=== PATIENT | male | born 1955 | race Asian ===

== ENCOUNTER 2020-05-26 06:30 | Outpatient (CLI) | payer OTHER ==
[2020-05-27 14:48] LABS: SARS-CoV-2 MS2 Positive; SARS-CoV-2 N Gene Negative; SARS-CoV-2 S Gene Negative; SARS-CoV-2 by NAA Not Detected (NotDetected); SARS-CoV-2 orf1ab Negative
== END 2020-05-26 06:31 | disposition home or self-care (01) ==
LOC: LABBT 06:30
PROVIDERS: ATTEND Internal Medicine Cardiovascular Disease
DX: I48.91 Unspecified atrial fibrillation (principal); Z20.828 Contact with and (suspected) exposure to other viral communicable diseases
CPT/HCPCS: 87635; U0003

== ENCOUNTER 2020-06-07 07:12 | Outpatient (CLI) | payer OTHER ==
[2020-06-08 09:25] LABS: SARS-CoV-2 MS2 Positive; SARS-CoV-2 N Gene Negative; SARS-CoV-2 S Gene Negative; SARS-CoV-2 by NAA Not Detected (NotDetected); SARS-CoV-2 orf1ab Negative
== END 2020-06-07 07:13 | disposition home or self-care (01) ==
LOC: LABBT 07:12
PROVIDERS: ATTEND Internal Medicine Cardiovascular Disease
DX: Z01.812 Encounter for preprocedural laboratory examination (principal); Z20.828 Contact with and (suspected) exposure to other viral communicable diseases
CPT/HCPCS: 87635; U0003

== ENCOUNTER 2020-06-10 06:57 | Day surgery (SDC) | payer OTHER ==
[2020-06-09 12:09] VITALS: BMI 31.4
[2020-06-10] MEDS ORDERED: PROPOFOL 20 ML ONE (08:25)
--- NOTE | 2020-06-11 01:56 | DIS ---
DATE OF ADMISSION: 06/10/2020 DATE OF DISCHARGE: 06/10/2020 Mr. Moody underwent cardioversion today, did require 360 joules of direct current energy before he converted to what looked like a junctional rhythm and then sinus rhythm. The patient's heart rate is 60 now. We will reduce metoprolol long-acting to 100 mg a day and see us in the office in 2 weeks. If he is still in sinus rhythm and feeling better that we noted, but if he goes back in fibrillation later, would could consider ablation. The ablation decision will be largely based on his symptoms. The patient did require 360 joules of direct current energy. Job ID: [id number]
--- NOTE | 2020-06-11 14:23 | CCLSPC ---
PROCEDURE: External cardioversion. INDICATION: Longstanding persistent atrial fibrillation, symptomatic. PROCEDURE IN DETAIL: The patient was brought to the post cath area in a fasting state. He was sedated by Anesthesia. He was given 200 joules direct current energy synchronized, did not convert to sinus rhythm. Then, he was 300 joules direct current. He did develop some idioventricular rhythm, but did not develop sinus rhythm. Then, at 360 joules, he converted briefly with an occasional P-wave to a sinus rhythm, but it looks like a junctional rhythm as well. It is difficult to tell the underlying rhythm currently. There were at least a few P-waves, looked like he did convert this very briefly. 12-lead EKG is pending. CONCLUSION: 1. Longstanding persistent atrial fibrillation. 2. Required 360 joules to have an occasional P-wave. 12-lead EKG is pending currently. Job ID: [id number]
--- NOTE | 2020-06-15 07:05 | EKG ---
Test Reason : POST CARDIOVERSION Blood Pressure : / mmHG Vent. Rate : 060 BPM Atrial Rate : 060 BPM P-R Int : 252 ms QRS Dur : 094 ms QT Int : 422 ms P-R-T Axes : 079 -25 -33 degrees QTc Int : 422 ms Sinus rhythm with 1st degree A-V block with Premature atrial complexes Possible Inferior infarct , age undetermined Abnormal ECG No previous ECGs available Confirmed by BAHMAN HERNANDEZ, MENDY ([id number] on 06/15/2020 7:05:25 AM Referred By: KIMBERLY Confirmed By:MENDY RUGGIERO MD
== END 2020-06-10 10:04 | disposition home or self-care (01) ==
LOC: CCL 06:57
PROVIDERS: ATTEND Internal Medicine Cardiovascular Disease
PROC: 5A2204Z Restoration of Cardiac Rhythm, Single (ICD-10-PCS; principal; 2020-06-10)
DX: I48.11 Longstanding persistent atrial fibrillation (principal); E11.9 Type 2 diabetes mellitus without complications; I10 Essential (primary) hypertension; E05.90 Thyrotoxicosis, unspecified without thyrotoxic crisis or storm; G47.33 Obstructive sleep apnea (adult) (pediatric); N40.0 Benign prostatic hyperplasia without lower urinary tract symptoms; E78.00 Pure hypercholesterolemia, unspecified; Z79.84 Long term (current) use of oral hypoglycemic drugs; Z79.899 Other long term (current) drug therapy
CPT/HCPCS: 92960; 93005; 93010; J2704

== ENCOUNTER 2020-07-29 11:45 | Outpatient (CLI) | payer MEDICARE ==
--- NOTE | 2020-07-29 12:34 | RAD ---
Chest 2 views HISTORY: Dyspnea. FINDINGS: No comparison. Cardiac silhouette is upper limits of normal in size. Pulmonary vasculature are unremarkable. Mediastinum is midline. Lungs slightly hyperinflated with widespread areas of mild interstitial scarr ing/thickening. Flattening of the hemidiaphragms on the lateral view. No lobar consolidation, pleural fluid, or pneum othorax are evident. Degenerative changes thoracic spine on the lateral view. IMPRESSION : Pulmonary hyperinflation. No acute abnormalities are demonstrated.
== END 2020-07-29 11:46 | disposition home or self-care (01) ==
LOC: BICRAD 11:45
PROVIDERS: ATTEND Internal Medicine Pulmonary Disease
DX: R06.00 Dyspnea, unspecified (principal); R91.8 Other nonspecific abnormal finding of lung field
CPT/HCPCS: 71046

== ENCOUNTER 2020-08-12 07:56 | Inpatient (IN) | payer MEDICARE ==
[2020-08-12] MEDS ORDERED: Azithromycin 500 MG VIAL ONE (08:10)
[2020-08-12] MEDS ORDERED: cefTRIAXone\\ROCEPHIN 1 GM VIAL ONE (08:10)
[2020-08-12 08:25] LABS: #Eosinphils 0.1 thou/uL (0.0-0.7); #Monocytes 0.2 thou/uL (0.11-0.59); #Neutrophils 8.6 thou/uL (1.40-6.50); %Basophils 0.3 % (0.0-1.0); %Eosinophils 0.6 % (0.0-10.0); %Lymphocytes 9.6 % (21.0-51.0); %Monocytes 2.3 % (0.0-10.0); %Neutrophils 87.2 % (42.0-75.0); Hemoglobin 11.8 g/dL (14.0-18.0); Mean Corpuscular HGB CONC 31.7 g/dL (32.0-36.0); Mean Corpuscular Hemoglobin 28.4 pg (27.0-31.0); Mean Corpuscular Volume 89.5 fL (78.0-98.0); Mean Platelet Volume 7.5 fL (7.4-10.4); Platelet Count 190 thou/uL (130-400); RBC Distribution Width 14.8 % (11.5-14.5); Red Blood Cell (RBC) Count 4.17 mill/uL (4.70-6.10); White Blood Cell (WBC) Count 9.9 thou/uL (4.8-10.8)
--- NOTE | 2020-08-12 08:40 | RAD ---
Exam: Chest one view HISTORY:COVID positive patient. Cough and shortness of breath. Comparison: 07/29/2020 FINDINGS: Cardiac silhouette:Cardiomegaly Aorta: Unremarkable Pulmonary vessels: Normal Costophrenic angles: Clear LUNGS: Worsening interstitial and alveolar opacities Pneumothorax: None Osseous abnormalities: None IMPRESSION: Worsening multi lobar COVID pneumonia.
[2020-08-12 08:42] LABS: ALT (SGPT) 43 U/L (8-55); AST (SGOT) 38 U/L (5-34); Albumin 3.6 g/dL (3.4-4.8); Alkaline Phosphatase 70 U/L (40-110); Anion Gap 18 mmol/L (10-20); BUN (Urea Nitrogen) 16 mg/dL (8.4-25.7); Bilirubin, Total 2.1 mg/dL (0.2-1.2); Calc. Creatinine Clearance 0 mL/min (70-130); Calcium 8.8 mg/dL (7.8-10.44); Carbon Dioxide 22 mmol/L (23-31); Chloride 97 mmol/L (98-107); Globulin 3.5 g/dL (2.4-3.5); Glucose 206 mg/dL (80-115); Potassium 3.2 mmol/L (3.5-5.1); Protein, Total 7.1 g/dL (5.8-8.1); Sodium 134 mmol/L (136-145)
--- NOTE | 2020-08-12 09:55 | CT ---
CTA Angio Chest W WO Con 08/12/2020 9:20 AM Indication: 64-year-old male with flulike symptoms and dyspnea; Covid positive testing 8 days ago Technique: Multiple CTA images were obtained of the thorax with IV contrast. 3-D rendering: MIP camryn nstructed images were created and reviewed. Comparison: CT the abdomen and pelvis without contrast from [facility] dated September 08, 2014. Findings: Pulmonary arteries: No central or segmental pulmonary embolus is evident. Heart and Aorta: There is mild cardiomegaly. There are mild vascular calcifications involving ram ry artery and thoracic aorta. Mediastinum:There is mild lymphadenopathy within the mediastinum and hilar regions. Lungs:There are patchy areas of scattered groundglass opacity with more confluent areas of peripheral consolidation within both lungs consistent with changes of an atypical multifocal pneumonia that is often seen with Covid 19 infections. Pleural space: Tiny bilateral pleural effusions. No pneumothorax Upper Abdomen: Stable bilateral adrenal adenoma. Osseous Structures: There is diffuse osteopenia. No suspicious osteolytic or osteoblastic lesion is identified. Soft tissues:No abnormality. Other findings:None. Impression: 1. No central or segmental pulmonary embolus identified. 2. Multifocal pneumonia is consistent with Covid pneumonia. 3. Mild cardiomegaly and mild bilateral pleural effusions. Component of volume overload or CHF cannot be entirely excluded. 4. Mild mediastinal hilar lymphadenopathy is likely reactive. 5. Stable bilateral adrenal adenoma.
[2020-08-12 11:04] LABS: Bacteria/HPF None Seen HPF (None Seen); Bilirubin Negative (Negative); Blood, Urine Trace (Negative); Clarity Clear (Clear); Glucose, Urine (Dipstick) 30 mg/dL (Negative); Ketone, Urine 10 mg/dL (Negative); Leukocyte Negative Leu/uL (Negative); Nitrite Negative (Negative); Protein, Urine (Dipstick) 300 mg/dL (Neg-Trace); RBC/HPF 0-3 HPF (0-3); Specific Gravity, Urine 1.019 (1.002-1.036); Squamous Epithelial 0-3 HPF (0-3); Urobilinogen Normal mg/dL (Less than 2); WBC/HPF 0-3 HPF (0-3); pH, Urine 6.5 (5.0-9.0)
[2020-08-12 11:41] LABS: Lactic Acid 2.2 mmol/L (0.5-2.2)
[2020-08-12 11:45] VITALS: BMI 30.5
[2020-08-12] MEDS ORDERED: Ondansetron PF 4 MG/2 ML Vial IVP PRN (11:45)
[2020-08-12] MEDS ORDERED: Acetaminophen 325 MG TAB PO PRN (11:45)
[2020-08-12] MEDS ORDERED: Ondansetron ODT 4 MG TAB SL PRN (11:45)
[2020-08-12] MEDS ORDERED: Loperamide HCl 2 MG CAP PO PRN ×2 (11:52)
[2020-08-12] MEDS ORDERED: Acetaminophen 650 MG Suppository PR PRN (11:52)
[2020-08-12] MEDS ORDERED: HumaLOG 300 UNITS/3 ML VIAL SC PRN (11:58)
[2020-08-12] MEDS ORDERED: Dextrose 50% Abboject 50 ML SYRINGE SLOW IVP PRN (11:58)
[2020-08-12] MEDS ORDERED: Dextrose 5% in Water 1,000 ML IV PRN (11:58)
[2020-08-12] MEDS ORDERED: Potassium Phosphate 15 MMOL in Sodium Chloride 0.9% 250 ML 250 ML IVPB SCH (12:00)
--- NOTE | 2020-08-12 12:05 | PDOC.HHP ---
Hospitalist HPI - History of Present Illness Shortness of breath History of Present Illness: Mr. Moody is a 64-year-old male with past medical history of hypertension, hyperlipidemia, type 2 diabetes mellitus, atrial fibrillation on Pradaxa, obstructive sleep apnea, COPD not on home O2, nephrolithiasis who presents emergency room for shortness of breath. Patient tested positive for Covid last week and his symptoms began approximately 8 days ago with fever, myalgias, and cough. Patient's respiratory status worsened and he had increasing dyspnea on exertion and eventually at rest. Presented hypoxic to 71% on room air. Patient denies chest pain, abdominal pain nausea vomiting diarrhea. Of note his bessemer bottom maker prescribed a course of steroids and a z-pack when his symptoms started, and he has finished a 5 day course. In emergency room initial vital signs showed patient 7% on room air, improved to 94% on 4 L nasal cannula. 176/104, 35, 98.9. Chest x-ray showed diffuse multifocal pneumonia. CT a was negative for pulmonary embolism but did show mild bilateral pleural effusions, mediastinal hilar lymphadenopathy, and changes consistent with COVID-19 pneumonia and an incidental adrenal adenoma which was stable from prior. Lactic acid was 2.5, troponin 0 0.024. D-dimer 0.59. EKG showed atrial fibrillation with a ventricular rate of 101. H/H 11.8/37.3. WBC 9.9. Platelets 190. BUN/CR 16/1.28, sodium 134, potassium 3.2. Glucose 206. T bili 2.1, AST/ALT 38/43. Patient received ceftriaxone, azithromycin and 1 L of normal saline. Hospitalist ROS - Review of Systems Constitutional: reports: fever, chills, weakness, malaise. denies: sweats Eyes: denies: pain, vision change, conjunctivae inflammation, eyelid inflammation, redness, other ENT: reports: throat pain. denies: ear pain, ear discharge, nose pain, nose discharge, nose congestion, mouth pain, mouth swelling, throat swelling, other Respiratory: reports: cough, shortness of breath, SOB with excertion. denies: dry, hemoptysis, pleuritic pain, sputum, wheezing, other Cardiovascular: denies: chest pain, palpitations, orthopnea, paroxysmal noc. dy spnea, edema, light headedness, other Gastrointestinal: denies: nausea, vomiting, abdominal pain, diarrhea, constipation, melena, hematochezia, other Genitourinary: denies: dysuria, frequency, incontinence, hematuria, retention, other Musculoskeletal: denies: neck pain, shoulder pain, arm pain, back pain, hand pain, leg pain, foot pain, other Skin: denies: rash, lesions, carlos, bruising, other Neurological: denies: weakness, numbness, incoordination, change in speech, con fusion, seizures, other - Medication Medications: No medications taken from ER records include Levothyroxine Atorvastatin Potassium Pradaxa We will need to confirm patient's home medication list No known drug allergies Hospitalist History - Past Medical History Other Medical History: Past medical history includes Hypertension Hyperlipidemia Type 2 diabetes mellitus Atrial fibrillationcardioversion in May 2020 Obstructive sleep apnea Kidney stones - Past Surgical History Other Surgical History: Past surgical history includes lithotripsy Cardioversion in May 2020 for atrial fibrillation - Family History Other Family History: No pertinent family history - Social History Smoking Status: Never smoker Alcohol: reports: None Drugs: reports: none Living Situation: With Family Activity level: independent ambulation - Exam General Appearance: NAD, awake alert General - other findings: Comfortable on 4 L nasal cannula ENT: normocephalic atraumatic, no oropharyngeal lesions, moist mucosa Neck: supple, symmetric, no JVD, no thyromegaly, no lymphadenopathy, no carotid bruit Heart: RRR, no murmur, no gallops, no rubs, normal peripheral pulses Respiratory: no wheezes, normal chest expansion, no tachypnea Respiratory - other findings: Rales throughout Gastrointestinal: soft, non-tender, non-distended, normal bowel sounds, no palpable masses, no hepatomegaly, no splenomegaly, no bruit Extremities: no cyanosis, no clubbing, no edema Skin: normal turgor, no lesions, no rashes Neurological: cranial nerve grossly intact, normal sensation to touch, no weakness, no focal deficits, no new deficit Musculoskeletal: normal tone, normal strength, no muscle wasting Psychiatric: normal affect, normal behavior, A&O x 3 Hospitalist Results - Labs Result Diagrams: 08/12/20 08:10 08/12/20 08:10 Lab results: WBC 9.9 thou/uL (4.8-10.8) 08/12/20 08:10 Hgb 11.8 g/dL (14.0-18.0) L 08/12/20 08:10 Hct 37.3 % (42.0-52.0) L 08/12/20 08:10 MCV 89.5 fL (78.0-98.0) 08/12/20 08:10 Plt Count 190 thou/uL (130-400) 08/12/20 08:10 Neutrophils % 87.2 % (42.0-75.0) H 08/12/20 08:10 Sodium 134 mmol/L (136-145) L 08/12/20 08:10 Potassium 3.2 mmol/L (3.5-5.1) L 08/12/20 08:10 Chloride 97 mmol/L (98-107) L 08/12/20 08:10 Carbon Dioxide 22 mmol/L (23-31) L 08/12/20 08:10 BUN 16 mg/dL (8.4-25.7) 08/12/20 08:10 Creatinine 1.28 mg/dL (0.7-1.3) 08/12/20 08:10 Glucose 206 mg/dL (80-115) H 08/12/20 08:10 Lactic Acid 2.2 mmol/L (0.5-2.2) 08/12/20 11:04 Calcium 8.8 mg/dL (7.8-10.44) 08/12/20 08:10 Total Bilirubin 2.1 mg/dL (0.2-1.2) H 08/12/20 08:10 AST 38 U/L (5-34) H 08/12/20 08:10 ALT 43 U/L (8-55) 08/12/20 08:10 Alkaline Phosphatase 70 U/L (40-110) 08/12/20 08:10 Troponin I 0.024 ng/mL (< 0.028) 08/12/20 08:10 Serum Total Protein 7.1 g/dL (5.8-8.1) 08/12/20 08:10 Albumin 3.6 g/dL (3.4-4.8) 08/12/20 08:10 Urine Ketones 10 mg/dL (Negative) A 08/12/20 10:30 Urine Blood Trace (Negative) A 08/12/20 10:30 Urine Nitrite Negative (Negative) 08/12/20 10:30 Ur Leukocyte Esterase Negative Paola/uL (Negative) 08/12/20 10:30 Urine RBC 0-3 HPF (0-3) 08/12/20 10:30 Urine WBC 0-3 HPF (0-3) 08/12/20 10:30 Ur Squamous Epith Cells 0-3 HPF (0-3) 08/12/20 10:30 Urine Bacteria None Seen HPF (None Seen) 08/12/20 10:30 Hospitalist H&P A/P - Plan Plan: COVID-19 pneumonia 64-year-old male with past medical history of hypertension, hyperlipidemia, di abetes, A. fib, CHARLEE presents for shortness of breath. Patient Covid positive approximately 1 week ago hypoxic to 70s on presentation. Chest x-ray shows multifocal pneumonia. CTA negative for PE but did show mild bilateral pleural effusions, lymphadenopathy and significant groundglass opacities consistent with COVID-19 pneumonia. WBC 9.9, lactic acid 2.5, initial troponin 0 0.024, D-dimer 0.59. Patient now requiring 4 L of nasal cannula to maintain oxygenation. Patient received ceftriaxone and azithromycin in the emergency room. Will continue IV antibiotics, start steroids, see if patient is candidate for remdesivir. Plan -Decadron, will see patient is candidate for remdesivir -Ceftriaxone, azithromycin -Supplemental oxygen -Tylenol, Robitussin -Vitamin C, zinc -We will obtain baseline inflammatory markers Acute hypoxic respiratory failure Patient with acute hypoxic respiratory failure secondary to moderate to severe COVID-19 pneumonia. Patient with new oxygen requirement now on 2 L of oxygen nasal cannula to maintain O2 sat. We will continue supplemental oxygen and closely monitor respiratory status. Treatment as above. Plan -Supplemental oxygen -Treatment as above -Closely monitor respiratory status COPD Hx of COPD not on home O2. Patient follows with Dr. Emerson. At start of symptom onset, patient was started on a course of steroids and abx, which he has completed for 5 days. Currently requiring 4L NC. Is on home symbicort standing and albuterol rescue. Will make standing and PRN inhalers available. Plan -PRN albuterol -Symbicort inhalers -Treatment as above Atrial fibrillation Patient with history of atrial fibrillation. Underwent cardioversion in May of 2020. Patient currently on Pradaxa which we will continue. EKG shows atrial fibrillation with heart rate of 101. Plan Continue to monitor heart rate Continue Pradaxa Confirm home medications and see if patient is on rate control Obstructive sleep apnea We will see if patient can use CPAP at night to help his respiratory status. Type 2 diabetes mellitus History of type 2 diabetes mellitus on Metformin. Will continue home medications. Plan -Continue home DM medications ISS ACHS glucose checks Carb consistent diet Hypertension History of hypertension we will continue home medications once confirmed Hyperlipidemia We will continue home statin once dosage confirmed Hypothyroidism We will continue home levothyroxine once dosage confirmed DVT prophylaxisPradaxa
[2020-08-12] MEDS ORDERED: Albuterol 200 PUFF (6.7GM INHALER) INH PRN (13:14)
[2020-08-12] MEDS: HumaLOG 300 UNITS/3 ML VIAL SC PRN (13:17)
[2020-08-12] MEDS ORDERED: Iopamidol-370 76% 500 ML 1 ML ONE (14:29)
[2020-08-12] MEDS: hydrALAZINE 25 MG TAB PO SCH ×2 (14:38→20:07)
[2020-08-12] MEDS: Albuterol 200 PUFF (6.7GM INHALER) INH SCH ×2 (15:37→18:39)
[2020-08-12] MEDS: Tamsulosin HCl 0.4 MG CAP PO SCH (18:39)
[2020-08-12] MEDS: Mometasone 200 MCG/Formoterol 5 MCG 120 PUFF INHALER INH SCH (18:39)
[2020-08-12] MEDS: Dutasteride 0.5 MG CAP PO SCH (18:39)
[2020-08-12] MEDS ORDERED: metFORMIN XR 500 MG TAB PO SCH (18:45)
[2020-08-12] MEDS: Amlodipine 5 MG TAB PO SCH (20:00)
[2020-08-12] MEDS: Montelukast Sodium 10 mg Tablet PO SCH (20:07)
[2020-08-12] MEDS: Potassium Chloride 20 MEQ TAB PO SCH ×2 (20:08→20:14)
[2020-08-12] MEDS ORDERED: Non-Formulary Item 1 EACH (Telmisartan [Telmisartan] 80 MG Tablet) PO SCH (21:00)
[2020-08-12] MEDS ORDERED: Losartan 25 MG TAB PO SCH (21:00)
[2020-08-12] MEDS: Atorvastatin Calcium 10 MG TAB PO SCH (21:27)
[2020-08-12] MEDS: Dabigatran 150 mg Capsule PO SCH (21:27)
[2020-08-13 06:41] LABS: #Eosinphils 0.1 thou/uL (0.0-0.7); #Monocytes 0.3 thou/uL (0.11-0.59); #Neutrophils 9.9 thou/uL (1.40-6.50); %Basophils 0.2 % (0.0-1.0); %Eosinophils 0.5 % (0.0-10.0); %Lymphocytes 8.9 % (21.0-51.0); %Neutrophils 87.4 % (42.0-75.0); Hemoglobin 11.5 g/dL (14.0-18.0); Mean Corpuscular HGB CONC 31.3 g/dL (32.0-36.0); Mean Corpuscular Hemoglobin 28.1 pg (27.0-31.0); Mean Corpuscular Volume 89.8 fL (78.0-98.0); Mean Platelet Volume 7.7 fL (7.4-10.4); Platelet Count 210 thou/uL (130-400); RBC Distribution Width 14.8 % (11.5-14.5); Red Blood Cell (RBC) Count 4.08 mill/uL (4.70-6.10); White Blood Cell (WBC) Count 11.3 thou/uL (4.8-10.8)
[2020-08-13] MEDS: Albuterol 200 PUFF (6.7GM INHALER) INH SCH ×4 (06:49→20:26)
[2020-08-13 07:03] LABS: Anion Gap 19 mmol/L (10-20); BUN (Urea Nitrogen) 22 mg/dL (8.4-25.7); Calc. Creatinine Clearance 72 mL/min (70-130); Carbon Dioxide 24 mmol/L (23-31); Chloride 100 mmol/L (98-107); Glucose 217 mg/dL (80-115); Potassium 3.8 mmol/L (3.5-5.1); Sodium 139 mmol/L (136-145)
[2020-08-13] MEDS: Dexamethasone 4 MG TAB PO SCH (07:39)
[2020-08-13] MEDS: Dabigatran 150 mg Capsule PO SCH ×2 (07:39→20:24)
[2020-08-13] MEDS: Cholecalciferol (Vitamin D3) 400 UNITS TAB PO SCH (07:39)
[2020-08-13] MEDS: Ascorbic Acid 500 mg Chewable Tablet PO SCH (07:39)
[2020-08-13] MEDS: Potassium Chloride 20 MEQ TAB PO SCH ×2 (07:39→20:26)
[2020-08-13] MEDS: Zinc Sulfate 220 MG CAP PO SCH (07:40)
[2020-08-13] MEDS: hydrALAZINE 25 MG TAB PO SCH ×3 (07:40→20:25)
[2020-08-13] MEDS: Levothyroxine 175 MCG TAB PO SCH (07:40)
[2020-08-13] MEDS: Mometasone 200 MCG/Formoterol 5 MCG 120 PUFF INHALER INH SCH ×2 (07:42→17:16)
[2020-08-13] MEDS: metFORMIN XR 500 MG TAB PO SCH ×2 (07:49→17:15)
[2020-08-13] MEDS: JANUVIA PO SCH (07:50)
[2020-08-13] MEDS ORDERED: Azithromycin 500 MG in Sodium Chloride 0.9% 250 ML 250 ML IVPB SCH (08:00)
[2020-08-13] MEDS ORDERED: metFORMIN 500 MG TAB PO SCH (08:00)
[2020-08-13] MEDS: Sodium Chloride 0.9% 500 ML IV SCH ×3 (08:29→20:26)
[2020-08-13] MEDS ORDERED: Cefepime 2 GM in Sodium Chloride 0.9% 100 ML IVPB SCH (09:00)
[2020-08-13] MEDS ORDERED: metFORMIN XR 500 MG TAB PO SCH ×2 (09:00→17:00)
[2020-08-13] MEDS ORDERED: JANUMET PO SCH ×2 (09:00)
[2020-08-13] MEDS ORDERED: cefTRIAXone\\ROCEPHIN 1 GM in Sodium Chloride 0.9% 100 ML IVPB SCH (09:00)
[2020-08-13] MEDS ORDERED: SITAGLIPTIN PHOSPHATE 25 MG PO SCH (09:00)
[2020-08-13] MEDS ORDERED: Furosemide 40 MG TAB PO SCH (09:00)
--- NOTE | 2020-08-13 09:22 | PDOC.HOSPP ---
- Subjective Encounter Date: 08/13/20 Encounter Time: 10:50 Subjective: Patient reports shortness of breath improved with high flow nasal cannula oxygen. Earlier this morning patient was quite short of breath and his oxygen was dropping on the simple nasal cannula that he was switched to to allow him to eat. Patient denies any chest pain. He does have significant dyspnea on exertion. Patient is worried about his who is now in the emergency room also with Covid and is being admitted to the hospital. - Objective Vital Signs & Weight: Vital Signs (12 hours) Temp Pulse Resp BP Pulse Ox 08/13/20 08:00 98.6 F 94 24 H 145/93 H 93 L 08/13/20 05:48 91 L 08/13/20 05:45 98.2 F 110 H 24 H 159/90 H 91 L 08/13/20 05:41 91 L 08/13/20 01:34 98.2 F 104 H 22 H 158/96 H 92 L Weight Weight 213 lb I&O: 08/12/20 08/13/20 08/14/20 06:59 06:59 06:59 Intake Total 990 Balance 990 Result Diagrams: 08/13/20 06:08 08/13/20 06:08 Additional Labs: Accuchecks 08/13/20 08/12/20 08/12/20 05:09 16:41 11:56 POC Glucose 196 H 223 H 208 H Hospitalist ROS - Review of Systems Constitutional: denies: fever, chills Respiratory: reports: cough, shortness of breath, SOB with excertion Cardiovascular: denies: chest pain, palpitations Gastrointestinal: denies: nausea, vomiting, abdominal pain - Medication Medications: Active Medications Generic Name Dose Route Start Last Admin Trade Name Freq PRN Reason Stop Dose Admin Albuterol Sulfate 2 puff 08/12/20 15:00 08/13/20 06:49 Albuterol 200 Puff (6.7gm Inhaler) INH 2 unit [id number] ELIZABETH Administration Albuterol Sulfate 2 puff 08/12/20 13:14 08/13/20 05:41 Albuterol 200 Puff (6.7gm Inhaler) INH 2 puff Q6H PRN Administration SOB &/or Wheezing Amlodipine Besylate 2.5 mg 08/12/20 21:00 08/12/20 20:00 Amlodipine 5 Mg Tab PO 2.5 mg HS ELIZABETH Administration Ascorbic Acid 1,000 mg 08/13/20 09:00 08/13/20 07:39 Ascorbic Acid 500 Mg Chewable Tablet PO 1,000 mg DAILY ELIZABETH Administration Atorvastatin Calcium 10 mg 08/12/20 21:00 08/12/20 21:27 Atorvastatin Calcium 10 Mg Tab PO 10 mg HS ELIZABETH Administration Cholecalciferol 400 units 08/13/20 09:00 08/13/20 07:39 Cholecalciferol (Vitamin D3) 400 Units Tab PO 400 units DAILY ELIZABETH Administration Dabigatran 150 mg 08/12/20 21:00 08/13/20 07:39 Dabigatran 150 Mg Capsule PO 150 mg BID ELIZABETH Administration Dexamethasone 6 mg 08/13/20 08:00 08/13/20 07:39 Dexamethasone 4 Mg Tab PO 6 mg QAM-WM ELIZABETH Administration Dutasteride 0.5 mg 08/12/20 18:00 08/12/20 18:39 Dutasteride 0.5 Mg Cap PO 0.5 mg 1800 ELIZABETH Administration Hydralazine HCl 25 mg 08/12/20 15:00 08/13/20 07:40 Hydralazine 25 Mg Tab PO 25 mg TID ELIZABETH Administration Azithromycin 500 mg/ Sodium 250 mls @ 250 mls/hr 08/13/20 08:00 08/13/20 07:45 Chloride IVPB 250 mls 0800 ELIZABETH Administration Sodium Chloride 500 mls @ 75 mls/hr 08/13/20 08:00 08/13/20 08:29 Normal Saline 0.9% IV 500 mls .[id number] ELIZABETH Administration Levothyroxine Sodium 175 mcg 08/13/20 06:00 08/13/20 07:40 Levothyroxine 175 Mcg Tab PO 175 mcg 0600 ELIZABETH Administration Loperamide HCl 4 mg 08/12/20 11:52 08/13/20 08:28 Loperamide Hcl 2 Mg Cap PO 08/13/20 11:53 4 mg ONE PRN Administration Diarrhea/Loose Stools Metformin HCl 1,000 mg 08/13/20 09:00 08/13/20 07:50 Metformin Xr 500 Mg Tab PO Not Given 0900 ELIZABETH Metformin HCl 1,000 mg 08/13/20 09:00 08/13/20 07:49 Metformin Xr 500 Mg Tab PO 1,000 mg 0900,1700 ELIZABETH Administration Metoprolol Succinate 100 mg 08/13/20 08:00 08/13/20 07:40 Metoprolol Succinate Xl 100 Mg Tab PO 100 mg BID-WM ELIZABETH Administration Mometasone Furoate/Formoterol Fumar 2 puff 08/12/20 18:30 08/13/20 07:42 Mometasone 200 Mcg/Formoterol 5 Mcg 120 Puff Inhaler INH Not Given BID-RT ELIZABETH Montelukast Sodium 10 mg 08/12/20 21:00 08/12/20 20:07 Montelukast Sodium 10 Mg Tablet PO 10 mg HS ELIZABETH Administration Patient's Home 0 each 08/13/20 09:00 08/13/20 07:50 Medication Januvia PO 1 each QAM ELIZABETH Administration Potassium Chloride 20 meq 08/12/20 21:00 08/13/20 07:39 Potassium Chloride 20 Meq Tab PO 20 meq BID ELIZABETH Administration Sodium Chloride 10 ml 08/12/20 11:52 08/13/20 07:45 Flush - Normal Saline 10 Ml Syringe IVF 10 ml PRN PRN Administration Saline Flush Tamsulosin HCl 0.4 mg 08/12/20 18:00 08/12/20 18:39 Tamsulosin Hcl 0.4 Mg Cap PO 0.4 mg 1800 ELIZABETH Administration Zinc Sulfate 220 mg 08/13/20 09:00 08/13/20 07:40 Zinc Sulfate 220 Mg Cap PO 220 mg DAILY ELIZABETH Administration - Exam General Appearance: NAD, awake alert ENT: moist mucosa Heart: RRR, no murmur, no gallops, no rubs Respiratory: no wheezes, no ronchi, normal chest expansion, no tachypnea, rales (Diffusely) Gastrointestinal: soft, non-tender, non-distended, normal bowel sounds Extremities: no edema Psychiatric: normal affect, normal behavior, A&O x 3 Hosp A/P - Plan COVID-19 pneumonia 64-year-old male with past medical history of hypertension, hyperlipidemia, diabetes, A. fib, CHARLEE presents for shortness of breath. Patient Covid positive approximately 1 week ago and now hypoxic to 70s on presentation. Chest x-ray shows multifocal pneumonia. CTA negative for PE but did show mild bilateral pleural effusions, lymphadenopathy and significant groundglass opacities consistent with COVID-19 pneumonia. WBC 9.9, lactic acid 2.5, initial troponin 0 0.024, D-dimer 0.59. Patient was requiring 4 L of nasal cannula in the ER to maintain oxygenation. Patient received ceftriaxone and azithromycin in the emergency room. Patient now requiring 15L mask, desated when switched to NC to allow to eat. This morning I had respiratory start him on high flow NC O2 and he is doing b iain. Plan -Decadron, start Remdesivir -d/c antibiotics as not shown to be helpful in Covid-19 pneumonia -Supplemental oxygen -Tylenol, Robitussin -Vitamin C, zinc -We will obtain baseline inflammatory markers Acute hypoxic respiratory failure Patient with acute hypoxic respiratory failure secondary to moderate to severe COVID-19 pneumonia. Patient with new oxygen requirement now on 2 L of oxygen nasal cannula to maintain O2 sat. We will continue supplemental oxygen and closely monitor respiratory status. Treatment as above. Plan -Supplemental oxygen -Treatment as above -Closely monitor respiratory status COPD Hx of COPD not on home O2. Patient follows with Dr. Emerson. At start of symptom onset, patient was started on a course of steroids and abx, which he has completed for 5 days. Now requiring high flow nasal cannula oxygen. Is on home symbicort standing and albuterol rescue. Will make standing and PRN inhalers available. Plan -PRN albuterol -Symbicort inhalers -Treatment as above Atrial fibrillation Patient with history of atrial fibrillation. Underwent cardioversion in May of 2020. Patient currently on Pradaxa which we will continue. EKG shows atrial fibrillation with heart rate of 101. Plan Continue to monitor heart rate Continue Pradaxa Confirm home medications and see if patient is on rate control Obstructive sleep apnea We will see if patient can use CPAP at night to help his respiratory status. Type 2 diabetes mellitus History of type 2 diabetes mellitus on Metformin. Will continue home medications. Plan -Continue home DM medications ISS ACHS glucose checks Carb consistent diet Hypertension History of hypertension we will continue home medications once confirmed Hyperlipidemia We will continue home statin once dosage confirmed Hypothyroidism We will continue home levothyroxine once dosage confirmed DVT prophylaxisPradaxa
[2020-08-13] MEDS ORDERED: REMDESIVIR (EUA) 200 MG in Sodium Chloride 0.9% 250 ML 210 ML IV SCH (11:30)
[2020-08-13] MEDS ORDERED: Furosemide 20 MG TAB PO SCH (12:00)
[2020-08-13 12:22] LABS: Legionella Urinary Ag Negative (Negative)
[2020-08-13] MEDS: Tamsulosin HCl 0.4 MG CAP PO SCH (17:15)
[2020-08-13] MEDS: Dutasteride 0.5 MG CAP PO SCH (17:15)
[2020-08-13] MEDS: ACARBOSE PO SCH (17:15)
[2020-08-13] MEDS: Losartan 25 MG TAB PO SCH (20:24)
[2020-08-13] MEDS: Amlodipine 5 MG TAB PO SCH (20:24)
[2020-08-13] MEDS: Atorvastatin Calcium 10 MG TAB PO SCH (20:25)
[2020-08-13] MEDS: Montelukast Sodium 10 mg Tablet PO SCH (20:25)
[2020-08-13] MEDS ORDERED: TELMISARTAN 80 MG PO SCH (21:00)
[2020-08-14] MEDS: Sodium Chloride 0.9% 500 ML IV SCH ×4 (03:59→16:27)
[2020-08-14] MEDS: Mometasone 200 MCG/Formoterol 5 MCG 120 PUFF INHALER INH SCH ×2 (07:40→17:20)
[2020-08-14 07:50] LABS: Anion Gap 19 mmol/L (10-20); BUN (Urea Nitrogen) 34 mg/dL (8.4-25.7); Calc. Creatinine Clearance 65 mL/min (70-130); Calcium 9.2 mg/dL (7.8-10.44); Carbon Dioxide 23 mmol/L (23-31); Chloride 102 mmol/L (98-107); Glucose 161 mg/dL (80-115); Potassium 3.8 mmol/L (3.5-5.1); Sodium 140 mmol/L (136-145)
[2020-08-14 08:05] LABS: #Eosinphils 0.1 thou/uL (0.0-0.7); #Lymphocytes 1.5 thou/uL (1.20-3.40); #Monocytes 0.6 thou/uL (0.11-0.59); #Neutrophils 12.3 thou/uL (1.40-6.50); %Basophils 0.2 % (0.0-1.0); %Eosinophils 0.7 % (0.0-10.0); %Lymphocytes 10.1 % (21.0-51.0); %Neutrophils 85.1 % (42.0-75.0); Hemoglobin 11.7 g/dL (14.0-18.0); Mean Corpuscular HGB CONC 30.5 g/dL (32.0-36.0); Mean Corpuscular Hemoglobin 27.3 pg (27.0-31.0); Mean Corpuscular Volume 89.3 fL (78.0-98.0); Mean Platelet Volume 7.5 fL (7.4-10.4); Platelet Count 250 thou/uL (130-400); RBC Distribution Width 15.1 % (11.5-14.5); White Blood Cell (WBC) Count 14.4 thou/uL (4.8-10.8)
[2020-08-14] MEDS: Cholecalciferol (Vitamin D3) 400 UNITS TAB PO SCH (08:06)
[2020-08-14] MEDS: Ascorbic Acid 500 mg Chewable Tablet PO SCH (08:06)
[2020-08-14] MEDS: metFORMIN XR 500 MG TAB PO SCH ×2 (08:06→16:26)
[2020-08-14] MEDS: Dexamethasone 4 MG TAB PO SCH (08:06)
[2020-08-14] MEDS: hydrALAZINE 25 MG TAB PO SCH ×3 (08:06→20:21)
[2020-08-14] MEDS: Potassium Chloride 20 MEQ TAB PO SCH ×2 (08:06→20:22)
[2020-08-14] MEDS: Zinc Sulfate 220 MG CAP PO SCH (08:07)
[2020-08-14] MEDS: Pantoprazole 40 MG VIAL IVP SCH (08:07)
[2020-08-14] MEDS: JANUVIA PO SCH (08:07)
[2020-08-14] MEDS: Dabigatran 150 mg Capsule PO SCH ×2 (08:07→20:22)
[2020-08-14] MEDS: Levothyroxine 175 MCG TAB PO SCH (08:07)
--- NOTE | 2020-08-14 08:07 | PDOC.HOSPP ---
- Subjective Encounter Date: 08/14/20 Encounter Time: 10:20 Subjective: Patient reports continued cough and shortness of breath especially with ambulation. He reports that his pulse rate was high all morning and he has a history of atrial fibrillation. Currently back down in the 90s while I was in the room. Patient reports that his is now admitted to the hospital on lower dose oxygen and remdesivir. - Objective Vital Signs & Weight: Vital Signs (12 hours) Temp Pulse Resp BP Pulse Ox 08/14/20 08:02 96.9 F L 92 38 H 149/96 H 96 08/14/20 05:13 98.3 F 95 31 H 126/96 H 95 08/14/20 03:14 36 H 96 08/14/20 00:12 98.3 F 97 33 H 148/87 H 95 08/13/20 20:25 101 H 08/13/20 20:24 101 H 08/13/20 20:15 98 F 90 32 H 138/76 Weight Weight 213 lb I&O: 08/13/20 08/14/20 08/15/20 06:59 06:59 06:59 Intake Total 990 660 Output Total 800 Balance 990 -140 Result Diagrams: 08/14/20 06:41 08/14/20 06:41 Hospitalist ROS - Review of Systems Constitutional: denies: fever, chills Respiratory: reports: cough, shortness of breath Cardiovascular: denies: chest pain, palpitations Gastrointestinal: denies: nausea, vomiting, abdominal pain - Medication Medications: Active Medications Generic Name Dose Route Start Last Admin Trade Name Freq PRN Reason Stop Dose Admin Albuterol Sulfate 2 puff 08/12/20 15:00 08/13/20 20:26 Albuterol 200 Puff (6.7gm Inhaler) INH 2 unit [id number] ELIZABETH Administration Albuterol Sulfate 2 puff 08/12/20 13:14 08/13/20 05:41 Albuterol 200 Puff (6.7gm Inhaler) INH 2 puff Q6H PRN Administration SOB &/or Wheezing Amlodipine Besylate 2.5 mg 08/12/20 21:00 08/13/20 20:24 Amlodipine 5 Mg Tab PO 2.5 mg HS ELIZABETH Administration Ascorbic Acid 1,000 mg 08/13/20 09:00 08/13/20 07:39 Ascorbic Acid 500 Mg Chewable Tablet PO 1,000 mg DAILY ELIZABETH Administration Atorvastatin Calcium 10 mg 08/12/20 21:00 08/13/20 20:25 Atorvastatin Calcium 10 Mg Tab PO 10 mg HS ELIZABETH Administration Cholecalciferol 400 units 08/13/20 09:00 08/13/20 07:39 Cholecalciferol (Vitamin D3) 400 Units Tab PO 400 units DAILY [facility]ETH Administration Dabigatran 150 mg 08/12/20 21:00 08/13/20 20:24 Dabigatran 150 Mg Capsule PO 150 mg BID ELIZ[facility]ETH Administration Dexamethasone 6 mg 08/13/20 08:00 08/13/20 07:39 Dexamethasone 4 Mg Tab PO 6 mg QAM-WM ELIZABETH Administration Dutasteride 0.5 mg 08/12/20 18:00 08/13/20 17:15 Dutasteride 0.5 Mg Cap PO 0.5 mg 1800 ELIZABETH Administration Hydralazine HCl 25 mg 08/12/20 15:00 08/13/20 20:25 Hydralazine 25 Mg Tab PO 25 mg TID ELIZABETH Administration Levothyroxine Sodium 175 mcg 08/13/20 06:00 08/13/20 07:40 Levothyroxine 175 Mcg Tab PO 175 mcg 0600 ELIZABETH Administration Losartan Potassium 100 mg 08/13/20 21:00 08/13/20 20:24 Losartan 25 Mg Tab PO 100 mg HS ELIZABETH Administration Metformin HCl 1,000 mg 08/13/20 09:00 08/13/20 17:15 Metformin Xr 500 Mg Tab PO 1,000 mg 0900,1700 ELIZ[facility]ETH Administration Metoprolol Succinate 100 mg 08/13/20 08:00 08/13/20 17:15 Metoprolol Succinate Xl 100 Mg Tab PO 100 mg BID-WM ELIZABETH Administration Mometasone Furoate/Formoterol Fumar 2 puff 08/12/20 18:30 08/14/20 07:40 Mometasone 200 Mcg/Formoterol 5 Mcg 120 Puff Inhaler INH Not Given BID-RT ELIZABETH Montelukast Sodium 10 mg 08/12/20 21:00 08/13/20 20:25 Montelukast Sodium 10 Mg Tablet PO 10 mg HS ELIZABETH Administration Patient's Home 0 each 08/13/20 17:00 08/13/20 17:15 Medication Acarbose PO 1 each 1700 ELIZABETH Administration Patient's Home 0 each 08/13/20 09:00 08/13/20 07:50 Medication Januvia PO 1 each QAM [facility]ETH Administration Potassium Chloride 20 meq 08/12/20 21:00 08/13/20 20:26 Potassium Chloride 20 Meq Tab PO 20 meq BID ELIZ[facility]ETH Administration Sodium Chloride 10 ml 08/12/20 11:52 08/13/20 07:45 Flush - Normal Saline 10 Ml Syringe IVF 10 ml PRN PRN Administration Saline Flush Tamsulosin HCl 0.4 mg 08/12/20 18:00 08/13/20 17:15 Tamsulosin Hcl 0.4 Mg Cap PO 0.4 mg 1800 ELIZABETH Administration Zinc Sulfate 220 mg 08/13/20 09:00 08/13/20 07:40 Zinc Sulfate 220 Mg Cap PO 220 mg DAILY EL[facility]ETH Administration - Exam General Appearance: NAD, awake alert ENT: moist mucosa Heart: RRR, no murmur, no gallops, no rubs Respiratory: CTAB, no wheezes, no rales, no ronchi Respiratory - other findings: Decent air movement throughout Gastrointestinal: soft, non-tender, non-distended, normal bowel sounds Extremities: no edema Psychiatric: normal affect, normal behavior, A&O x 3 Hosp A/P - Plan COVID-19 pneumonia 64-year-old male with past medical history of hypertension, hyperlipidemia, diabetes, A. fib, CHARLEE presents for shortness of breath. Patient Covid positive approximately 1 week ago and now hypoxic to 70s on presentation. Chest x-ray shows multifocal pneumonia. CTA negative for PE but did show mild bilateral pleural effusions, lymphadenopathy and significant groundglass opacities consistent with COVID-19 pneumonia. WBC 9.9, lactic acid 2.5, initial troponin 0 0.024, D-dimer 0.59. Patient was requiring 4 L of nasal cannula in the ER to maintain oxygenation. Patient received ceftriaxone and azithromycin in the emergency room. 08/13/2020 Patient now requiring 15L mask, desated when switched to NC to allow to eat. This morning I had respiratory start him on high flow NC O2 and he is doing better. Plan -Decadron, start Remdesivir -d/c antibiotics as not shown to be helpful in Covid-19 pneumonia -Supplemental oxygen -Tylenol, Robitussin -Vitamin C, zinc -We will obtain baseline inflammatory markers Acute hypoxic respiratory failure Patient with acute hypoxic respiratory failure secondary to moderate to severe COVID-19 pneumonia. Patient with new oxygen requirement now on 2 L of oxygen nasal cannula to maintain O2 sat. We will continue supplemental oxygen and closely monitor respiratory status. Treatment as above. Plan -Supplemental oxygen -Treatment as above -Closely monitor respiratory status COPD Hx of COPD not on home O2. Patient follows with Dr. Emerson. At start of symptom onset, patient was started on a course of steroids and abx, which he has compl eted for 5 days. Now requiring high flow nasal cannula oxygen. Is on home symbicort standing and albuterol rescue. Will make standing and PRN inhalers available. Plan -PRN albuterol -Symbicort inhalers -Treatment as above Acute renal failure Patient's creatinine continues to climb. May need to hold Remdesivir if goes up further. Plan -increase IV fluids to 100mL/her -monitor creatinine closely -renal consult if worsens further Atrial fibrillation Patient with history of atrial fibrillation. Underwent cardioversion in May of 2020. Patient currently on Pradaxa which we will continue. EKG shows atrial fibrillation with heart rate of 101. Plan Continue to monitor heart rate Continue Pradaxa Continuing home metoprolol 100 mg twice a day. Heart rate decently controlled in spite of his Covid infection. Continue current medications. Obstructive sleep apnea We will see if patient can use CPAP at night to help his respiratory status. Type 2 diabetes mellitus History of type 2 diabetes mellitus on Metformin. Will continue home medications. Plan -Continue home DM medications ISS ACHS glucose checks Carb consistent diet Hypertension History of hypertension we will continue home medications once confirmed Hyperlipidemia We will continue home statin once dosage confirmed Hypothyroidism We will continue home levothyroxine once dosage confirmed DVT prophylaxisPradaxa
[2020-08-14] MEDS: Albuterol 200 PUFF (6.7GM INHALER) INH SCH ×4 (08:08→17:21)
[2020-08-14] MEDS: REMDESIVIR (EUA) 100 MG in Sodium Chloride 0.9% 250 ML 230 ML IV SCH (13:36)
[2020-08-14] MEDS: ACARBOSE PO SCH (16:26)
[2020-08-14] MEDS: Tamsulosin HCl 0.4 MG CAP PO SCH (16:26)
[2020-08-14] MEDS: Dutasteride 0.5 MG CAP PO SCH (16:26)
[2020-08-14] MEDS: Amlodipine 5 MG TAB PO SCH (20:21)
[2020-08-14] MEDS: Losartan 25 MG TAB PO SCH (20:21)
[2020-08-14] MEDS: Montelukast Sodium 10 mg Tablet PO SCH (20:22)
[2020-08-14] MEDS: Atorvastatin Calcium 10 MG TAB PO SCH (20:22)
[2020-08-15] MEDS: Sodium Chloride 0.9% 500 ML IV SCH ×5 (03:18→23:22)
[2020-08-15] MEDS: Mometasone 200 MCG/Formoterol 5 MCG 120 PUFF INHALER INH SCH ×2 (04:59→16:08)
[2020-08-15] MEDS: Levothyroxine 175 MCG TAB PO SCH (05:00)
[2020-08-15] MEDS: Albuterol 200 PUFF (6.7GM INHALER) INH SCH ×4 (05:56→17:42)
[2020-08-15 07:41] LABS: Anion Gap 17 mmol/L (10-20); BUN (Urea Nitrogen) 43 mg/dL (8.4-25.7); Calc. Creatinine Clearance 66 mL/min (70-130); Calcium 9.2 mg/dL (7.8-10.44); Carbon Dioxide 20 mmol/L (23-31); Chloride 101 mmol/L (98-107); Glucose 216 mg/dL (80-115); Sodium 134 mmol/L (136-145)
[2020-08-15 07:54] LABS: Hemoglobin 11.8 g/dL (14.0-18.0); Mean Corpuscular HGB CONC 31.1 g/dL (32.0-36.0); Mean Corpuscular Hemoglobin 27.7 pg (27.0-31.0); RBC Distribution Width 15.2 % (11.5-14.5); Red Blood Cell (RBC) Count 4.27 mill/uL (4.70-6.10)
[2020-08-15] MEDS: Dabigatran 150 mg Capsule PO SCH ×2 (07:56→20:01)
[2020-08-15] MEDS: Potassium Chloride 20 MEQ TAB PO SCH ×2 (07:56→20:01)
[2020-08-15] MEDS: Ascorbic Acid 500 mg Chewable Tablet PO SCH (07:56)
[2020-08-15] MEDS: Zinc Sulfate 220 MG CAP PO SCH (07:56)
[2020-08-15] MEDS: Pantoprazole 40 MG VIAL IVP SCH (07:56)
[2020-08-15] MEDS: Cholecalciferol (Vitamin D3) 400 UNITS TAB PO SCH (07:56)
[2020-08-15] MEDS: metFORMIN XR 500 MG TAB PO SCH ×2 (07:57→16:07)
[2020-08-15] MEDS: Alogliptin 6.25 MG TAB PO SCH (07:57)
[2020-08-15] MEDS: hydrALAZINE 25 MG TAB PO SCH ×3 (07:57→20:00)
[2020-08-15] MEDS: Dexamethasone 4 MG TAB PO SCH (07:57)
[2020-08-15] MEDS: JANUVIA PO SCH (07:58)
[2020-08-15] MEDS ORDERED: sitaGLIPtin Phosphate 25 MG TAB PO SCH (09:00)
[2020-08-15 09:46] LABS: Anisocytosis SLIGHT = 6-15 cells (100X) (0-5/hpf); Band 3 % (5-11); Burr Cells SLIGHT = 2-5 cells (100X) (0-1/hpf); Hypochromia SLIGHT = 6-15 cells (100X) (0-5/hpf); Lymphocytes 8 % (21-51); MDiff Complete? YES; Mean Platelet Volume 7.7 fL (7.4-10.4); Monocytes 2 % (0-10); Neutrophil 87 % (42-75); Nucleated RBC 1 % (0); Platelet Count 210 thou/uL (130-400); Platelet Morphology Comment Appears Adequate; Polychromasia SLIGHT = 2-3 cells (100X) (0-2/hpf); White Blood Cell (WBC) Count 14.1 thou/uL (4.8-10.8)
--- NOTE | 2020-08-15 12:12 | PDOC.HOSPP ---
- Subjective Encounter Date: 08/15/20 Encounter Time: 12:11 Subjective: Follow-up Covid pneumonia with hypoxia. Patient stated he could not sleep last night with a high flow oxygen and preferred his CPAP. No major changes from yesterday. His serum creatinine level has plateaued at 1.5. He is tolerating high flow oxygen. - Objective Vital Signs & Weight: Vital Signs (12 hours) Temp Pulse Resp BP Pulse Ox 08/15/20 08:51 99.5 F 91 40 H 105/70 96 08/15/20 08:45 92 L 08/15/20 08:00 95 08/15/20 07:57 92 08/15/20 03:42 97.9 F 92 38 H 157/102 H 95 Weight Weight 213 lb I&O: 08/14/20 08/15/20 08/16/20 06:59 06:59 06:59 Intake Total 660 800 Output Total 800 850 Balance -140 -50 Result Diagrams: 08/15/20 06:33 08/15/20 06:33 Additional Labs: Accuchecks 08/15/20 08/15/20 08/14/20 11:31 05:26 16:43 POC Glucose 207 H 189 H 218 H 08/14/20 12:02 POC Glucose 205 H Hospitalist ROS - Medication Medications: Active Medications Generic Name Dose Route Start Last Admin Trade Name Freq PRN Reason Stop Dose Admin Albuterol Sulfate 2 puff 08/12/20 15:00 08/15/20 05:56 Albuterol 200 Puff (6.7gm Inhaler) INH 2 puff [id number] ELIZABETH Administration Albuterol Sulfate 2 puff 08/12/20 13:14 08/13/20 05:41 Albuterol 200 Puff (6.7gm Inhaler) INH 2 puff Q6H PRN Administration SOB &/or Wheezing Alogliptin Benzoate 6.25 mg 08/15/20 09:00 08/15/20 07:57 Alogliptin 6.25 Mg Tab PO 6.25 mg QAM [facility]ETH Administration Amlodipine Besylate 2.5 mg 08/12/20 21:00 08/14/20 20:21 Amlodipine 5 Mg Tab PO 2.5 mg HS ELIZ[facility]ETH Administration Ascorbic Acid 1,000 mg 08/13/20 09:00 08/15/20 07:56 Ascorbic Acid 500 Mg Chewable Tablet PO 1,000 mg DAILY [facility]ETH Administration Atorvastatin Calcium 10 mg 08/12/20 21:00 08/14/20 20:22 Atorvastatin Calcium 10 Mg Tab PO 10 mg HS EL[facility]ABETH Administration Cholecalciferol 400 units 08/13/20 09:00 08/15/20 07:56 Cholecalciferol (Vitamin D3) 400 Units Tab PO 400 units DAILY [facility]ETH Administration Dabigatran 150 mg 08/12/20 21:00 08/15/20 07:56 Dabigatran 150 Mg Capsule PO 150 mg BID EL[facility]ETH Administration Dexamethasone 6 mg 08/13/20 08:00 08/15/20 07:57 Dexamethasone 4 Mg Tab PO 6 mg QAM-WM ELIZABETH Administration Dutasteride 0.5 mg 08/12/20 18:00 08/14/20 16:26 Dutasteride 0.5 Mg Cap PO 0.5 mg 1800 ELIZABETH Administration Hydralazine HCl 25 mg 08/12/20 15:00 08/15/20 07:57 Hydralazine 25 Mg Tab PO 25 mg TID ELIZABETH Administration Remdesivir 100 mg/ Sodium 250 mls @ 250 mls/hr 08/14/20 13:00 08/14/20 13:36 Chloride IV 08/17/20 13:59 250 mls 1300 ELIZABETH Administration Sodium Chloride 500 mls @ 100 mls/hr 08/14/20 08:04 08/15/20 07:58 Normal Saline 0.9% IV 500 mls .Q5H EL[facility]ABETH Administration Levothyroxine Sodium 175 mcg 08/13/20 06:00 08/15/20 05:00 Levothyroxine 175 Mcg Tab PO 175 mcg 0600 ELIZABETH Administration Losartan Potassium 100 mg 08/13/20 21:00 08/14/20 20:21 Losartan 25 Mg Tab PO 100 mg HS ELIZABETH Administration Metformin HCl 1,000 mg 08/13/20 09:00 08/15/20 07:57 Metformin Xr 500 Mg Tab PO 1,000 mg 0900,1700 ELIZABETH Administration Metoprolol Succinate 100 mg 08/13/20 08:00 08/15/20 07:57 Metoprolol Succinate Xl 100 Mg Tab PO 100 mg BID-WM ELIZABETH Administration Mometasone Furoate/Formoterol Fumar 2 puff 08/12/20 18:30 08/15/20 04:59 Mometasone 200 Mcg/Formoterol 5 Mcg 120 Puff Inhaler INH 2 puff BID-RT ELIZABETH Administration Montelukast Sodium 10 mg 08/12/20 21:00 08/14/20 20:22 Montelukast Sodium 10 Mg Tablet PO 10 mg HS ELIZABETH Administration Pantoprazole Sodium 40 mg 08/14/20 09:00 08/15/20 07:56 Pantoprazole 40 Mg Vial IVP 40 mg DAILY ELIZ[facility]ETH Administration Patient's Home 0 each 08/13/20 17:00 08/14/20 16:26 Medication Acarbose PO 1 each 1700 ELIZABETH Administration Patient's Home 0 each 08/13/20 09:00 08/15/20 07:58 Medication Januvia PO 1 each QAM [facility]ETH Administration Potassium Chloride 20 meq 08/12/20 21:00 08/15/20 07:56 Potassium Chloride 20 Meq Tab PO 20 meq BID ELIZ[facility]ETH Administration Sodium Chloride 10 ml 08/12/20 11:52 08/13/20 07:45 Flush - Normal Saline 10 Ml Syringe IVF 10 ml PRN PRN Administration Saline Flush Tamsulosin HCl 0.4 mg 08/12/20 18:00 08/14/20 16:26 Tamsulosin Hcl 0.4 Mg Cap PO 0.4 mg 1800 EL[facility]ETH Administration Zinc Sulfate 220 mg 08/13/20 09:00 08/15/20 07:56 Zinc Sulfate 220 Mg Cap PO 220 mg DAILY [facility]ETH Administration - Exam General Appearance: NAD, awake alert ENT - other findings: High flow oxygen Neck: no JVD Heart: RRR Respiratory: no wheezes Gastrointestinal: soft, non-distended Neurological: no weakness, no focal deficits Musculoskeletal: normal strength Psychiatric: normal affect, normal behavior, A&O x 3 Hosp A/P (1) Acute respiratory failure with hypoxia Code(s): J96.01 - ACUTE RESPIRATORY FAILURE WITH HYPOXIA Status: Acute (2) Pneumonia due to COVID-19 virus Code(s): U07.1 - COVID-19; J12.82 - PNEUMONIA DUE TO CORONAVIRUS DISEASE 2019 Status: Acute (3) Chronic atrial fibrillation Code(s): I48.20 - CHRONIC ATRIAL FIBRILLATION, UNSPECIFIED Status: Acute (4) Essential hypertension Code(s): I10 - ESSENTIAL (PRIMARY) HYPERTENSION Status: Acute (5) Obstructive sleep apnea Code(s): G47.33 - OBSTRUCTIVE SLEEP APNEA (ADULT) (PEDIATRIC) Status: Acute (6) Acute renal failure Status: Acute - Plan Continue Decadron for COVID pneumonia. Renal function has plateaued. We will continue remdesivir Titrate oxygen. Patient is currently tolerating high flow oxygen with good oxygen saturation. Wean oxygen as tolerated Anticoagulation with Pradaxa. Suggesting BiPAP at night. Bronchodilators as needed Zinc, vitamin C and vitamin D supplementation Insulin sliding scale for glucose management. Patient is also on Metformin. Monitor renal function. Continue antihypertensives. Increase activity as tolerated. Atrial fibrillation is currently rate controlled on oral metoprolol XL. Reduce IV fluid rate.
[2020-08-15] MEDS: REMDESIVIR (EUA) 100 MG in Sodium Chloride 0.9% 250 ML 230 ML IV SCH (14:03)
[2020-08-15] MEDS: Dutasteride 0.5 MG CAP PO SCH (16:08)
[2020-08-15] MEDS: ACARBOSE PO SCH (16:08)
[2020-08-15] MEDS: Tamsulosin HCl 0.4 MG CAP PO SCH (16:08)
[2020-08-15] MEDS: Atorvastatin Calcium 10 MG TAB PO SCH (20:00)
[2020-08-15] MEDS: Montelukast Sodium 10 mg Tablet PO SCH (20:00)
[2020-08-15] MEDS: Amlodipine 5 MG TAB PO SCH (20:01)
[2020-08-15] MEDS: Losartan 25 MG TAB PO SCH (20:01)
[2020-08-16] MEDS: Levothyroxine 175 MCG TAB PO SCH (05:28)
[2020-08-16] MEDS: Mometasone 200 MCG/Formoterol 5 MCG 120 PUFF INHALER INH SCH ×2 (05:29→18:44)
[2020-08-16] MEDS: Albuterol 200 PUFF (6.7GM INHALER) INH SCH ×4 (05:29→18:44)
[2020-08-16 07:16] LABS: #Eosinphils 0.1 thou/uL (0.0-0.7); #Lymphocytes 2.1 thou/uL (1.20-3.40); #Monocytes 0.9 thou/uL (0.11-0.59); #Neutrophils 12.2 thou/uL (1.40-6.50); %Basophils 0.3 % (0.0-1.0); %Eosinophils 0.6 % (0.0-10.0); %Lymphocytes 13.4 % (21.0-51.0); %Monocytes 5.9 % (0.0-10.0); %Neutrophils 79.8 % (42.0-75.0); Hemoglobin 11.6 g/dL (14.0-18.0); Mean Corpuscular Hemoglobin 27.7 pg (27.0-31.0); Mean Corpuscular Volume 89.4 fL (78.0-98.0); Mean Platelet Volume 8.3 fL (7.4-10.4); Platelet Count 154 thou/uL (130-400); RBC Distribution Width 15.2 % (11.5-14.5); Red Blood Cell (RBC) Count 4.19 mill/uL (4.70-6.10); White Blood Cell (WBC) Count 15.3 thou/uL (4.8-10.8)
[2020-08-16 07:26] LABS: Anion Gap 18 mmol/L (10-20); BUN (Urea Nitrogen) 50 mg/dL (8.4-25.7); Calc. Creatinine Clearance 62 mL/min (70-130); Carbon Dioxide 21 mmol/L (23-31); Chloride 104 mmol/L (98-107); Glucose 201 mg/dL (80-115); Potassium 4.5 mmol/L (3.5-5.1); Sodium 138 mmol/L (136-145)
[2020-08-16] MEDS: Potassium Chloride 20 MEQ TAB PO SCH ×2 (08:26→20:38)
[2020-08-16] MEDS: Dexamethasone 4 MG TAB PO SCH (08:27)
[2020-08-16] MEDS: Cholecalciferol (Vitamin D3) 400 UNITS TAB PO SCH (08:27)
[2020-08-16] MEDS: Zinc Sulfate 220 MG CAP PO SCH (08:27)
[2020-08-16] MEDS: Ascorbic Acid 500 mg Chewable Tablet PO SCH (08:27)
[2020-08-16] MEDS: Alogliptin 6.25 MG TAB PO SCH (08:27)
[2020-08-16] MEDS: Sodium Chloride 0.9% 500 ML IV SCH ×2 (08:28→16:13)
[2020-08-16] MEDS: Pantoprazole 40 MG VIAL IVP SCH (08:28)
[2020-08-16] MEDS: metFORMIN XR 500 MG TAB PO SCH (08:28)
[2020-08-16] MEDS: Dabigatran 150 mg Capsule PO SCH ×2 (08:28→20:38)
[2020-08-16] MEDS: hydrALAZINE 25 MG TAB PO SCH ×3 (08:29→20:38)
--- NOTE | 2020-08-16 08:39 | PDOC.HOSPP ---
- Subjective Encounter Date: 08/16/20 Encounter Time: 10:30 Subjective: Patient is feeling a little bit better today. He feels like the congestion in his chest is loosening some. Less cough. Still very short of breath with movement. He now has his home CPAP to use at night and that helped him sleep well last night. - Objective Vital Signs & Weight: Vital Signs (12 hours) Temp Pulse Resp BP BP Pulse Ox 08/16/20 08:29 92 157/103 H 08/16/20 07:31 97.8 F 92 36 H 157/103 H 92 L 08/16/20 03:39 83 30 H 96 08/15/20 23:40 90 32 H 97 Weight Weight 213 lb I&O: 08/15/20 08/16/20 08/17/20 06:59 06:59 06:59 Intake Total 800 590 Output Total 850 950 Balance -50 -360 Result Diagrams: 08/16/20 06:42 08/16/20 06:42 Additional Labs: Accuchecks 08/15/20 08/15/20 16:34 11:31 POC Glucose 216 H 207 H Hospitalist ROS - Review of Systems Constitutional: denies: fever, chills Respiratory: reports: cough, shortness of breath, SOB with excertion Cardiovascular: denies: chest pain, palpitations Gastrointestinal: denies: nausea, vomiting, abdominal pain - Medication Medications: Active Medications Generic Name Dose Route Start Last Admin Trade Name Freq PRN Reason Stop Dose Admin Albuterol Sulfate 2 puff 08/12/20 15:00 08/16/20 05:29 Albuterol 200 Puff (6.7gm Inhaler) INH 2 puff [id number] ELIZABETH Administration Albuterol Sulfate 2 puff 08/12/20 13:14 08/13/20 05:41 Albuterol 200 Puff (6.7gm Inhaler) INH 2 puff Q6H PRN Administration SOB &/or Wheezing Alogliptin Benzoate 6.25 mg 08/15/20 09:00 08/16/20 08:27 Alogliptin 6.25 Mg Tab PO 6.25 mg QAM [facility]ETH Administration Amlodipine Besylate 2.5 mg 08/12/20 21:00 08/15/20 20:01 Amlodipine 5 Mg Tab PO 2.5 mg HS ELIZ[facility]ETH Administration Ascorbic Acid 1,000 mg 08/13/20 09:00 08/16/20 08:27 Ascorbic Acid 500 Mg Chewable Tablet PO 1,000 mg DAILY [facility]ETH Administration Atorvastatin Calcium 10 mg 08/12/20 21:00 08/15/20 20:00 Atorvastatin Calcium 10 Mg Tab PO 10 mg HS ELIZABETH Administration Cholecalciferol 400 units 08/13/20 09:00 08/16/20 08:27 Cholecalciferol (Vitamin D3) 400 Units Tab PO 400 units DAILY EL[facility]ETH Administration Dabigatran 150 mg 08/12/20 21:00 08/16/20 08:28 Dabigatran 150 Mg Capsule PO 150 mg BID ELIZ[facility]ETH Administration Dexamethasone 6 mg 08/13/20 08:00 08/16/20 08:27 Dexamethasone 4 Mg Tab PO 6 mg QAM- [facility]ETH Administration Dutasteride 0.5 mg 08/12/20 18:00 08/15/20 16:08 Dutasteride 0.5 Mg Cap PO 0.5 mg 1800 EL[facility]ETH Administration Hydralazine HCl 25 mg 08/12/20 15:00 08/16/20 08:29 Hydralazine 25 Mg Tab PO 25 mg TID ELIZ[facility]ETH Administration Remdesivir 100 mg/ Sodium 250 mls @ 250 mls/hr 08/14/20 13:00 08/15/20 14:03 Chloride IV 08/17/20 13:59 250 mls 1300 EL[facility]ETH Administration Sodium Chloride 500 mls @ 50 mls/hr 08/15/20 12:22 08/16/20 08:28 Normal Saline 0.9% IV Not Given .Q10H [facility]ETH Levothyroxine Sodium 175 mcg 08/13/20 06:00 08/16/20 05:28 Levothyroxine 175 Mcg Tab PO 175 mcg 0600 EL[facility]ETH Administration Losartan Potassium 100 mg 08/13/20 21:00 08/15/20 20:01 Losartan 25 Mg Tab PO 100 mg HS ELIZABETH Administration Metformin HCl 1,000 mg 08/13/20 09:00 08/16/20 08:28 Metformin Xr 500 Mg Tab PO 1,000 mg 0900,1700 EL[facility]ETH Administration Metoprolol Succinate 100 mg 08/13/20 08:00 08/16/20 08:27 Metoprolol Succinate Xl 100 Mg Tab PO 100 mg BID-WM ELIZABETH Administration Mometasone Furoate/Formoterol Fumar 2 puff 08/12/20 18:30 08/16/20 05:29 Mometasone 200 Mcg/Formoterol 5 Mcg 120 Puff Inhaler INH 2 puff BID-RT ELIZABETH Administration Montelukast Sodium 10 mg 08/12/20 21:00 08/15/20 20:00 Montelukast Sodium 10 Mg Tablet PO 10 mg HS ELIZABETH Administration Pantoprazole Sodium 40 mg 08/14/20 09:00 08/16/20 08:28 Pantoprazole 40 Mg Vial IVP 40 mg DAILY EL[facility]ETH Administration Patient's Home 0 each 08/13/20 17:00 08/15/20 16:08 Medication Acarbose PO 1 each 1700 EL[facility]ETH Administration Patient's Home 0 each 08/13/20 09:00 08/15/20 07:58 Medication Januvia PO 1 each QAM [facility]ETH Administration Potassium Chloride 20 meq 08/12/20 21:00 08/16/20 08:26 Potassium Chloride 20 Meq Tab PO 20 meq BID ELIZ[facility]ETH Administration Sodium Chloride 10 ml 08/12/20 11:52 08/13/20 07:45 Flush - Normal Saline 10 Ml Syringe IVF 10 ml PRN PRN Administration Saline Flush Tamsulosin HCl 0.4 mg 08/12/20 18:00 08/15/20 16:08 Tamsulosin Hcl 0.4 Mg Cap PO 0.4 mg 1800 ELIZ[facility]ETH Administration Zinc Sulfate 220 mg 08/13/20 09:00 08/16/20 08:27 Zinc Sulfate 220 Mg Cap PO 220 mg DAILY EL[facility]ETH Administration - Exam General Appearance: NAD, awake alert ENT: moist mucosa ENT - other findings: High flow oxygen in place Heart: RRR, no murmur, no gallops, no rubs Respiratory: no wheezes, no ronchi, no tachypnea Respiratory - other findings: Few Rales in bases. Good air movement throughout. Gastrointestinal: soft, non-tender, non-distended, normal bowel sounds Extremities: no edema Musculoskeletal: normal tone, normal strength Psychiatric: normal affect, normal behavior, A&O x 3 Hosp A/P - Plan COVID-19 pneumonia 64-year-old male with past medical history of hypertension, hyperlipidemia, diabetes, A. fib, CHARLEE presents for shortness of breath. Patient Covid positive approximately 1 week ago and now hypoxic to 70s on presentation. Chest x-ray shows multifocal pneumonia. CTA negative for PE but did show mild bilateral pleural effusions, lymphadenopathy and significant groundglass opacities c onsistent with COVID-19 pneumonia. WBC 9.9, lactic acid 2.5, initial troponin 0 0.024, D-dimer 0.59. Patient was requiring 4 L of nasal cannula in the ER to maintain oxygenation. Patient received ceftriaxone and azithromycin in the emergency room. 08/13/2020 Patient now requiring 15L mask, desated when switched to NC to allow to eat. This morning I had respiratory start him on high flow NC O2 and he is doing better. 08/16/2020 Patient on his home CPAP overnight. Otherwise weaned down on high flow O2 to 39% FiO2 and 50L/min. Hopefully starting to improve. Plan -Decadron, Remdesivir day / -d/c'd antibiotics as not shown to be helpful in Covid-19 pneumonia -Supplemental oxygen -Tylenol, Robitussin -Vitamin C, zinc -Follow inflammatory markers Acute hypoxic respiratory failure Patient with acute hypoxic respiratory failure secondary to moderate to severe COVID-19 pneumonia. We will continue supplemental oxygen and closely monitor respiratory status. Treatment as above. Plan -Supplemental oxygen -Treatment as above -Closely monitor respiratory status COPD Hx of COPD not on home O2. Patient follows with Dr. Emerson. At start of symptom onset, patient was started on a course of steroids and abx, which he has completed for 5 days. Now requiring high flow nasal cannula oxygen. Is on home symbicort standing and albuterol rescue. Will make standing and PRN inhalers available. Plan -PRN albuterol -Symbicort inhalers -Treatment as above Acute renal failure Patient's creatinine continues to climb very minimally, up to 1.6 today. Plan -increased IV fluids to 100mL/her -monitor creatinine closely -renal consult if worsens further Atrial fibrillation Patient with history of atrial fibrillation. Underwent cardioversion in May of 2020. Patient currently on Pradaxa which we will continue. EKG shows atrial fibrillation with heart rate of 101. Plan Continue to monitor heart rate Continue Pradaxa Continuing home metoprolol 100 mg twice a day. Heart rate decently controlled in spite of his Covid infection. Continue current medications. Obstructive sleep apnea Using his home CPAP at night. Type 2 diabetes mellitus History of type 2 diabetes mellitus on Metformin. Plan -Hold home Metformin due to worsening renal function. ISS ACHS glucose checks Carb consistent diet Hypertension History of hypertension we will continue home medications Hyperlipidemia We will continue home statin Hypothyroidism We will continue home levothyroxine DVT prophylaxisPradaxa I did call patient's daughter and updated her on his progress. She would like to be updated every 2 or 3 days by a provider.
[2020-08-16] MEDS: JANUVIA PO SCH (08:42)
[2020-08-16] MEDS: HumaLOG 300 UNITS/3 ML VIAL SC PRN (13:00)
[2020-08-16] MEDS: REMDESIVIR (EUA) 100 MG in Sodium Chloride 0.9% 250 ML 230 ML IV SCH (14:09)
[2020-08-16] MEDS: Tamsulosin HCl 0.4 MG CAP PO SCH (17:02)
[2020-08-16] MEDS: Dutasteride 0.5 MG CAP PO SCH (17:02)
[2020-08-16] MEDS: ACARBOSE PO SCH (17:03)
[2020-08-16] MEDS: Amlodipine 5 MG TAB PO SCH (20:37)
[2020-08-16] MEDS: Atorvastatin Calcium 10 MG TAB PO SCH (20:37)
[2020-08-16] MEDS: Losartan 25 MG TAB PO SCH (20:37)
[2020-08-16] MEDS: Montelukast Sodium 10 mg Tablet PO SCH (20:38)
[2020-08-17] MEDS: Levothyroxine 175 MCG TAB PO SCH (05:16)
[2020-08-17] MEDS: Albuterol 200 PUFF (6.7GM INHALER) INH SCH ×4 (05:17→18:20)
[2020-08-17] MEDS: Mometasone 200 MCG/Formoterol 5 MCG 120 PUFF INHALER INH SCH ×2 (05:17→18:20)
[2020-08-17 06:13] LABS: #Eosinphils 0.1 thou/uL (0.0-0.7); #Lymphocytes 1.5 thou/uL (1.20-3.40); #Neutrophils 12.9 thou/uL (1.40-6.50); %Eosinophils 0.8 % (0.0-10.0); %Lymphocytes 9.7 % (21.0-51.0); %Monocytes 6.4 % (0.0-10.0); %Neutrophils 83.1 % (42.0-75.0); Hemoglobin 11.6 g/dL (14.0-18.0); Mean Corpuscular HGB CONC 31.7 g/dL (32.0-36.0); Mean Corpuscular Hemoglobin 28.1 pg (27.0-31.0); Mean Corpuscular Volume 88.7 fL (78.0-98.0); Mean Platelet Volume 8.4 fL (7.4-10.4); Platelet Count 167 thou/uL (130-400); RBC Distribution Width 15.6 % (11.5-14.5); Red Blood Cell (RBC) Count 4.14 mill/uL (4.70-6.10); White Blood Cell (WBC) Count 15.5 thou/uL (4.8-10.8)
[2020-08-17 06:39] LABS: Anion Gap 15 mmol/L (10-20); BUN (Urea Nitrogen) 44 mg/dL (8.4-25.7); Calc. Creatinine Clearance 67 mL/min (70-130); Calcium 8.5 mg/dL (7.8-10.44); Carbon Dioxide 22 mmol/L (23-31); Chloride 106 mmol/L (98-107); Glucose 192 mg/dL (80-115); Potassium 4.2 mmol/L (3.5-5.1); Sodium 139 mmol/L (136-145)
[2020-08-17] MEDS: Dexamethasone 4 MG TAB PO SCH (08:13)
[2020-08-17] MEDS: Pantoprazole 40 MG VIAL IVP SCH (08:13)
--- NOTE | 2020-08-17 08:13 | PDOC.HOSPP ---
- Subjective Encounter Date: 08/17/20 Encounter Time: 11:00 Subjective: Patient reports mild improvement in his shortness of breath and dyspnea on exertion. No other events overnight. Blood pressure has been running high. Patient states that his amlodipine if increased will cause significant lower extremity swelling. - Objective Vital Signs & Weight: Vital Signs (12 hours) Temp Pulse Resp BP Pulse Ox 08/17/20 07:41 97.6 F 80 38 H 156/110 H 99 08/17/20 03:39 79 36 H 96 08/16/20 23:39 82 34 H 96 Weight Weight 213 lb I&O: 08/16/20 08/17/20 08/18/20 06:59 06:59 06:59 Intake Total 590 2720 Output Total 950 1600 Balance -360 1120 Result Diagrams: 08/17/20 05:51 08/17/20 05:51 Additional Labs: Accuchecks 08/16/20 08/16/20 16:12 11:33 POC Glucose 209 H 205 H Hospitalist ROS - Review of Systems Constitutional: denies: fever, chills Respiratory: reports: cough, shortness of breath, SOB with excertion Cardiovascular: denies: chest pain, palpitations Gastrointestinal: denies: nausea, vomiting, abdominal pain - Medication Medications: Active Medications Generic Name Dose Route Start Last Admin Trade Name Freq PRN Reason Stop Dose Admin Albuterol Sulfate 2 puff 08/12/20 15:00 08/17/20 05:17 Albuterol 200 Puff (6.7gm Inhaler) INH 2 puff [id number] [facility] Administration Albuterol Sulfate 2 puff 08/12/20 13:14 08/13/20 05:41 Albuterol 200 Puff (6.7gm Inhaler) INH 2 puff Q6H PRN Administration SOB &/or Wheezing Alogliptin Benzoate 6.25 mg 08/15/20 09:00 08/16/20 08:27 Alogliptin 6.25 Mg Tab PO 6.25 mg QAM [facility] Administration Ascorbic Acid 1,000 mg 08/13/20 09:00 08/16/20 08:27 Ascorbic Acid 500 Mg Chewable Tablet PO 1,000 mg DAILY [facility] Administration Atorvastatin Calcium 10 mg 08/12/20 21:00 08/16/20 20:37 Atorvastatin Calcium 10 Mg Tab PO 10 mg HS [facility] Administration Cholecalciferol 400 units 08/13/20 09:00 08/16/20 08:27 Cholecalciferol (Vitamin D3) 400 Units Tab PO 400 units DAILY [facility] Administration Dabigatran 150 mg 08/12/20 21:00 08/16/20 20:38 Dabigatran 150 Mg Capsule PO 150 mg BID [facility] Administration Dexamethasone 6 mg 08/13/20 08:00 08/16/20 08:27 Dexamethasone 4 Mg Tab PO 6 mg QAM-WM [facility] Administration Dutasteride 0.5 mg 08/12/20 18:00 08/16/20 17:02 Dutasteride 0.5 Mg Cap PO 0.5 mg 1800 [facility] Administration Hydralazine HCl 25 mg 08/12/20 15:00 08/16/20 20:38 Hydralazine 25 Mg Tab PO 25 mg TID [facility] Administration Remdesivir 100 mg/ Sodium 250 mls @ 250 mls/hr 08/14/20 13:00 08/16/20 14:09 Chloride IV 08/17/20 13:59 250 mls 1300 [facility] Administration Sodium Chloride 500 mls @ 50 mls/hr 08/15/20 12:22 08/16/20 16:13 Normal Saline 0.9% IV 500 mls .Q10H [facility] Administration Levothyroxine Sodium 175 mcg 08/13/20 06:00 08/17/20 05:16 Levothyroxine 175 Mcg Tab PO 175 mcg 0600 [facility] Administration Loperamide HCl 2 mg 08/12/20 11:52 08/16/20 13:00 Loperamide Hcl 2 Mg Cap PO 2 mg PRN PRN Administration Diarrhea/Loose Stools Losartan Potassium 100 mg 08/13/20 21:00 08/16/20 20:37 Losartan 25 Mg Tab PO 100 mg HS [facility] Administration Metformin HCl 1,000 mg 08/13/20 09:00 08/16/20 08:28 Metformin Xr 500 Mg Tab PO 1,000 mg 0900,1700 [facility] Administration Metoprolol Succinate 100 mg 08/13/20 08:00 08/16/20 16:12 Metoprolol Succinate Xl 100 Mg Tab PO 100 mg BID-WM [facility] Administration Mometasone Furoate/Formoterol Fumar 2 puff 08/12/20 18:30 08/17/20 05:17 Mometasone 200 Mcg/Formoterol 5 Mcg 120 Puff Inhaler INH 2 puff BID-RT [facility] Administration Montelukast Sodium 10 mg 08/12/20 21:00 08/16/20 20:38 Montelukast Sodium 10 Mg Tablet PO 10 mg HS [facility] Administration Pantoprazole Sodium 40 mg 08/14/20 09:00 08/16/20 08:28 Pantoprazole 40 Mg Vial IVP 40 mg DAILY [facility] Administration Patient's Home 0 each 08/13/20 17:00 08/16/20 17:03 Medication Acarbose PO 1 each 1700 [facility] Administration Patient's Home 0 each 08/13/20 09:00 08/16/20 08:42 Medication Januvia PO 1 each QAM [facility] Administration Potassium Chloride 20 meq 08/12/20 21:00 08/16/20 20:38 Potassium Chloride 20 Meq Tab PO 20 meq BID [facility] Administration Sodium Chloride 10 ml 08/12/20 11:52 08/13/20 07:45 Flush - Normal Saline 10 Ml Syringe IVF 10 ml PRN PRN Administration Saline Flush Tamsulosin HCl 0.4 mg 08/12/20 18:00 08/16/20 17:02 Tamsulosin Hcl 0.4 Mg Cap PO 0.4 mg 1800 [facility] Administration Zinc Sulfate 220 mg 08/13/20 09:00 08/16/20 08:27 Zinc Sulfate 220 Mg Cap PO 220 mg DAILY [facility] Administration Hospitalist Exam Vitals: Vital Signs (12 hours) Temp Pulse Resp BP Pulse Ox 08/17/20 07:41 97.6 F 80 38 H 156/110 H 99 08/17/20 03:39 79 36 H 96 08/16/20 23:39 82 34 H 96 Weight Weight 213 lb General Appearance: NAD, awake alert ENT: moist mucosa Heart: RRR, no murmur, no gallops, no rubs Respiratory: no wheezes, no ronchi, no tachypnea Respiratory - other findings: Mild bibasilar Rales Gastrointestinal: soft, non-tender, non-distended, normal bowel sounds Extremities - other findings: Trace ankle edema bilaterally Psychiatric: normal affect, normal behavior, A&O x 3 Hosp A/P - Plan COVID-19 pneumonia 64-year-old male with past medical history of hypertension, hyperlipidemia, diabetes, A. fib, CHARLEE presents for shortness of breath. Patient Covid positive approximately 1 week ago and now hypoxic to 70s on presentation. Chest x-ray shows multifocal pneumonia. CTA negative for PE but did show mild bilateral pleural effusions, lymphadenopathy and significant groundglass opacities consistent with COVID-19 pneumonia. WBC 9.9, lactic acid 2.5, initial troponin 0 0.024, D-dimer 0.59. Patient was requiring 4 L of nasal cannula in the ER to maintain oxygenation. Patient received ceftriaxone and azithromycin in the emergency room. 08/13/2020 Patient now requiring 15L mask, desated when switched to NC to allow t o eat. This morning I had respiratory start him on high flow [place] O2 and he is doing better. 08/16/2020 Patient on his home CPAP overnight. Otherwise weaned down on high flow O2 to 39% FiO2 and 50L/min. Hopefully starting to improve. 08/17/2020 Now down to 40% FiO2 at 40L/min Plan -Decadron, Remdesivir day 11/24 -d/c'd antibiotics as not shown to be helpful in Covid-19 pneumonia -Supplemental oxygen -Tylenol, Robitussin -Vitamin C, zinc -Follow inflammatory markers-CRP markedly improving, though D-dimer is further elevated. Patient already on Pradaxa. Acute hypoxic respiratory failure Patient with acute hypoxic respiratory failure secondary to moderate to severe COVID-19 pneumonia. We will continue supplemental oxygen and closely monitor respiratory status. Treatment as above. Plan -Supplemental oxygen -Treatment as above -Closely monitor respiratory status COPD Hx of COPD not on home O2. Patient follows with Dr. Emerson. At start of symptom onset, patient was started on a course of steroids and abx, which he has completed for 5 days. Now requiring high flow nasal cannula oxygen. Is on home symbicort standing and albuterol rescue. Will make standing and PRN inhalers available. Plan -PRN albuterol -Symbicort inhalers -Treatment as above Acute renal failure Patient's creatinine improving some today. Plan -continue IV fluids at 100mL/her -monitor creatinine closely -renal consult if worsens further Atrial fibrillation Patient with history of atrial fibrillation. Underwent cardioversion in May of 2020. Patient currently on Pradaxa which we will continue. EKG sh ows atrial fibrillation with heart rate of 101. Plan Continue to monitor heart rate Continue Pradaxa Continuing home metoprolol 100 mg twice a day. Heart rate well controlled. Obstructive sleep apnea Using his home CPAP at night. Type 2 diabetes mellitus History of type 2 diabetes mellitus on Metformin. Plan -Hold home Metformin due to worsening renal function. ISS ACHS glucose checks Carb consistent diet Hypertension History of hypertension we will continue home medications Running high consistently, will increase hydralazine dose Hyperlipidemia We will continue home statin Hypothyroidism We will continue home levothyroxine DVT prophylaxisPradaxa I did call patient's daughter again today and updated her on his progress. She would like to be updated every 2 or 3 days by a provider.
[2020-08-17] MEDS: Dabigatran 150 mg Capsule PO SCH ×2 (08:14→19:57)
[2020-08-17] MEDS: Zinc Sulfate 220 MG CAP PO SCH (08:14)
[2020-08-17] MEDS: Cholecalciferol (Vitamin D3) 400 UNITS TAB PO SCH (08:14)
[2020-08-17] MEDS: Ascorbic Acid 500 mg Chewable Tablet PO SCH (08:14)
[2020-08-17] MEDS: hydrALAZINE 25 MG TAB PO SCH ×4 (08:14→19:58)
[2020-08-17] MEDS: Potassium Chloride 20 MEQ TAB PO SCH ×2 (08:14→19:57)
[2020-08-17] MEDS: Alogliptin 6.25 MG TAB PO SCH (08:14)
[2020-08-17] MEDS: Sodium Chloride 0.9% 500 ML IV SCH ×3 (08:15→21:52)
[2020-08-17] MEDS: JANUVIA PO SCH ×3 (09:03→16:39)
[2020-08-17] MEDS: REMDESIVIR (EUA) 100 MG in Sodium Chloride 0.9% 250 ML 230 ML IV SCH (13:39)
[2020-08-17] MEDS ORDERED: Alogliptin 6.25 MG TAB PO SCH (17:00)
[2020-08-17] MEDS: Tamsulosin HCl 0.4 MG CAP PO SCH (17:15)
[2020-08-17] MEDS: Dutasteride 0.5 MG CAP PO SCH (17:15)
[2020-08-17] MEDS: Atorvastatin Calcium 10 MG TAB PO SCH (19:57)
[2020-08-17] MEDS: Losartan 25 MG TAB PO SCH (19:58)
[2020-08-17] MEDS: Montelukast Sodium 10 mg Tablet PO SCH (19:58)
[2020-08-17] MEDS: Amlodipine 5 MG TAB PO SCH (19:59)
[2020-08-17] MEDS ORDERED: Amlodipine 5 MG TAB PO SCH (21:00)
[2020-08-18] MEDS: Levothyroxine 175 MCG TAB PO SCH (05:46)
[2020-08-18] MEDS: Sodium Chloride 0.9% 500 ML IV SCH ×2 (05:46→16:20)
[2020-08-18] MEDS: Mometasone 200 MCG/Formoterol 5 MCG 120 PUFF INHALER INH SCH ×2 (07:20→17:46)
[2020-08-18] MEDS: Albuterol 200 PUFF (6.7GM INHALER) INH SCH ×4 (07:20→18:37)
--- NOTE | 2020-08-18 07:41 | PDOC.HOSPP ---
- Subjective Encounter Date: 08/18/20 Encounter Time: 09:00 Subjective: Patient reports feeling much better. He has been taken off high flow oxygen and is saturating well on 4 L nasal cannula currently. I did discuss with the patient the need to increase his hydralazine and that he needs to take it 3 times a day and he is agreeable. - Objective Vital Signs & Weight: Vital Signs (12 hours) Temp Pulse Resp BP Pulse Ox 08/18/20 07:37 93 L 08/18/20 05:46 98.0 F 20 159/91 H 98 08/18/20 05:00 83 08/18/20 00:00 98.3 F 73 20 147/88 H 99 08/17/20 20:00 100 08/17/20 19:59 71 08/17/20 19:58 71 08/17/20 19:51 98.2 F 71 20 162/96 H 100 Weight Weight 213 lb I&O: 08/17/20 08/18/20 08/19/20 06:59 06:59 06:59 Intake Total 2720 1950 Output Total 1600 950 Balance 1120 1000 Result Diagrams: 08/17/20 05:51 08/17/20 05:51 Hospitalist ROS - Review of Systems Constitutional: denies: fever, chills Respiratory: reports: shortness of breath, SOB with excertion. denies: cough Cardiovascular: denies: chest pain, palpitations Gastrointestinal: denies: nausea, vomiting, abdominal pain - Medication Medications: Active Medications Generic Name Dose Route Start Last Admin Trade Name Freq PRN Reason Stop Dose Admin Albuterol Sulfate 2 puff 08/12/20 15:00 08/18/20 07:20 Albuterol 200 Puff (6.7gm Inhaler) INH 2 puff [id number] [facility] Administration Albuterol Sulfate 2 puff 08/12/20 13:14 08/13/20 05:41 Albuterol 200 Puff (6.7gm Inhaler) INH 2 puff Q6H PRN Administration SOB &/or Wheezing Amlodipine Besylate 2.5 mg 08/17/20 21:00 08/17/20 19:59 Amlodipine 5 Mg Tab PO 2.5 mg HS [facility] Administration Ascorbic Acid 1,000 mg 08/13/20 09:00 08/17/20 08:14 Ascorbic Acid 500 Mg Chewable Tablet PO 1,000 mg DAILY [facility] Administration Atorvastatin Calcium 10 mg 08/12/20 21:00 08/17/20 19:57 Atorvastatin Calcium 10 Mg Tab PO 10 mg HS [facility] Administration Cholecalciferol 400 units 08/13/20 09:00 08/17/20 08:14 Cholecalciferol (Vitamin D3) 400 Units Tab PO 400 units DAILY [facility] Administration Dabigatran 150 mg 08/12/20 21:00 08/17/20 19:57 Dabigatran 150 Mg Capsule PO 150 mg BID [facility] Administration Dexamethasone 6 mg 08/13/20 08:00 08/17/20 08:13 Dexamethasone 4 Mg Tab PO 6 mg QAM- [facility] Administration Dutasteride 0.5 mg 08/12/20 18:00 08/17/20 17:15 Dutasteride 0.5 Mg Cap PO 0.5 mg 1800 [facility] Administration Hydralazine HCl 50 mg 08/17/20 15:00 08/17/20 19:58 Hydralazine 25 Mg Tab PO 50 mg TID [facility] Administration Sodium Chloride 500 mls @ 50 mls/hr 08/15/20 12:22 08/18/20 05:46 Normal Saline 0.9% IV 500 mls .Q10H [facility] Administration Levothyroxine Sodium 175 mcg 08/13/20 06:00 08/18/20 05:46 Levothyroxine 175 Mcg Tab PO 175 mcg 0600 [facility] Administration Loperamide HCl 2 mg 08/12/20 11:52 08/16/20 13:00 Loperamide Hcl 2 Mg Cap PO 2 mg PRN PRN Administration Diarrhea/Loose Stools Losartan Potassium 100 mg 08/13/20 21:00 08/17/20 19:58 Losartan 25 Mg Tab PO 100 mg HS [facility] Administration Metformin HCl 1,000 mg 08/13/20 09:00 08/16/20 08:28 Metformin Xr 500 Mg Tab PO 1,000 mg 0900,1700 [facility] Administration Metoprolol Succinate 100 mg 08/13/20 08:00 08/17/20 16:28 Metoprolol Succinate Xl 100 Mg Tab PO 100 mg BID-WM [facility] Administration Mometasone Furoate/Formoterol Fumar 2 puff 08/12/20 18:30 08/18/20 07:20 Mometasone 200 Mcg/Formoterol 5 Mcg 120 Puff Inhaler INH 2 puff BID-RT [facility] Administration Montelukast Sodium 10 mg 08/12/20 21:00 08/17/20 19:58 Montelukast Sodium 10 Mg Tablet PO 10 mg HS [facility] Administration Pantoprazole Sodium 40 mg 08/14/20 09:00 08/17/20 08:13 Pantoprazole 40 Mg Vial IVP 40 mg DAILY [facility] Administration Patient's Home 0 each 08/17/20 17:00 08/17/20 16:39 Medication Januvia PO 1 each 1700 [facility] Administration Potassium Chloride 20 meq 08/12/20 21:00 08/17/20 19:57 Potassium Chloride 20 Meq Tab PO 20 meq BID [facility] Administration Sodium Chloride 10 ml 08/12/20 11:52 08/17/20 08:14 Flush - Normal Saline 10 Ml Syringe IVF 10 ml PRN PRN Administration Saline Flush Tamsulosin HCl 0.4 mg 08/12/20 18:00 08/17/20 17:15 Tamsulosin Hcl 0.4 Mg Cap PO 0.4 mg 1800 [facility] Administration Zinc Sulfate 220 mg 08/13/20 09:00 08/17/20 08:14 Zinc Sulfate 220 Mg Cap PO 220 mg DAILY [facility] Administration Hospitalist Exam Vitals: Vital Signs (12 hours) Temp Pulse Resp BP Pulse Ox 08/18/20 07:37 93 L 08/18/20 05:46 98.0 F 20 159/91 H 98 08/18/20 05:00 83 08/18/20 00:00 98.3 F 73 20 147/88 H 99 08/17/20 20:00 100 08/17/20 19:59 71 08/17/20 19:58 71 08/17/20 19:51 98.2 F 71 20 162/96 H 100 Weight Weight 213 lb General Appearance: NAD, awake alert ENT: moist mucosa ENT - other findings: On 4 L nasal cannula currently Heart: RRR, no murmur, no gallops, no rubs Respiratory: no wheezes, no ronchi, no tachypnea Respiratory - other findings: Few Rales in bases bilaterally Gastrointestinal: soft, non-tender, non-distended, normal bowel sounds Extremities - other findings: Trace edema bilateral ankles Psychiatric: normal affect, normal behavior, A&O x 3 Hosp A/P - Plan COVID-19 pneumonia 64-year-old male with past medical history of hypertension, hyperlipidemia, diabetes, A. fib, CHARLEE presents for shortness of breath. Patient Covid positive approximately 1 week ago and now hypoxic to 70s on presentation. Chest x-ray shows multifocal pneumonia. CTA negative for PE but did show mild bilateral pleural effusions, lymphadenopathy and significant groundglass opacities consistent with COVID-19 pneumonia. WBC 9.9, lactic acid 2.5, initial troponin 0 0.024, D-dimer 0.59. Patient was requiring 4 L of nasal cannula in the ER to maintain oxygenation. Patient received ceftriaxone and azithromycin in the emergency room. 08/13/2020 Patient now requiring 15L mask, desated when switched to NC to allow to eat. This morning I had respiratory start him on high flow [place] O2 and he is d oing better. 08/16/2020 Patient on his home CPAP overnight. Otherwise weaned down on high flow O2 to 39% FiO2 and 50L/min. Hopefully starting to improve. 08/17/2020 Now down to 40% FiO2 at 40L/min 08/18/2020 patient now down to 4 L nasal cannula with good oxygenation Plan -Decadron, Remdesivir completed -d/c'd antibiotics as not shown to be helpful in Covid-19 pneumonia -Supplemental oxygen -Tylenol, Robitussin -Vitamin C, zinc -Follow inflammatory markers-CRP markedly improving, though D-dimer is further elevated. Patient already on Pradaxa. Acute hypoxic respiratory failure Patient with acute hypoxic respiratory failure secondary to moderate to severe COVID-19 pneumonia. We will continue supplemental oxygen and closely monitor respiratory status. Treatment as above. Plan -Supplemental oxygen -Treatment as above -Closely monitor respiratory status COPD Hx of COPD not on home O2. Patient follows with Dr. Emerson. At start of symptom onset, patient was started on a course of steroids and abx, which he has completed for 5 days. Now requiring high flow nasal cannula oxygen. Is on home symbicort standing and albuterol rescue. Will make standing and PRN inhalers available. Plan -PRN albuterol -Symbicort inhalers -Treatment as above Acute renal failure Patient's creatinine improving some today. Plan -continue IV fluids at 100mL/her -monitor creatinine closely -renal consult if worsens further Atrial fibrillation Patient with history of atrial fibrillation. Underwent cardioversion in May of 2020. Patient currently on Pradaxa which we will continue. EKG shows atrial fibrillation with heart rate of 101. Plan Continue to monitor heart rate Continue Pradaxa Continuing home metoprolol 100 mg twice a day. Heart rate well controlled. Obstructive sleep apnea Using his home CPAP at night. Type 2 diabetes mellitus History of type 2 diabetes mellitus on Metformin. Plan -Hold home Metformin due to worsening renal function. ISS ACHS glucose checks Carb consistent diet Hypertension History of hypertension we will continue home medications Running high consistently, will increase hydralazine dose Patient reluctant to take medicine 3 times a day, will counseling aide him on necessity of good blood pressure control Hyperlipidemia We will continue home statin Hypothyroidism We will continue home levothyroxine DVT prophylaxisPradaxa Patient doing much better. If he continues to improve, he may be able to go home in 1 to 2 days on home oxygen. Will need to make sure he can ambulate without too much hypoxia.
[2020-08-18] MEDS: Ascorbic Acid 500 mg Chewable Tablet PO SCH (08:15)
[2020-08-18] MEDS: hydrALAZINE 25 MG TAB PO SCH ×3 (08:15→20:02)
[2020-08-18] MEDS: Dabigatran 150 mg Capsule PO SCH ×2 (08:15→20:02)
[2020-08-18] MEDS: Dexamethasone 4 MG TAB PO SCH (08:15)
[2020-08-18] MEDS: Cholecalciferol (Vitamin D3) 400 UNITS TAB PO SCH (08:15)
[2020-08-18] MEDS: Zinc Sulfate 220 MG CAP PO SCH (08:15)
[2020-08-18] MEDS: Potassium Chloride 20 MEQ TAB PO SCH ×2 (08:15→20:02)
[2020-08-18] MEDS: ACARBOSE PO SCH (08:16)
[2020-08-18] MEDS: Pantoprazole 40 MG VIAL IVP SCH (08:16)
[2020-08-18] MEDS: HumaLOG 300 UNITS/3 ML VIAL SC PRN (16:29)
[2020-08-18] MEDS: JANUVIA PO SCH (16:29)
[2020-08-18] MEDS: Dutasteride 0.5 MG CAP PO SCH (17:46)
[2020-08-18] MEDS: Tamsulosin HCl 0.4 MG CAP PO SCH (17:46)
[2020-08-18] MEDS: Atorvastatin Calcium 10 MG TAB PO SCH (20:02)
[2020-08-18] MEDS: Losartan 25 MG TAB PO SCH (20:02)
[2020-08-18] MEDS: Amlodipine 5 MG TAB PO SCH (20:03)
[2020-08-18] MEDS: Montelukast Sodium 10 mg Tablet PO SCH (20:03)
[2020-08-19] MEDS: Sodium Chloride 0.9% 500 ML IV SCH ×4 (01:52→22:23)
[2020-08-19] MEDS: Levothyroxine 175 MCG TAB PO SCH (05:31)
[2020-08-19] MEDS: Mometasone 200 MCG/Formoterol 5 MCG 120 PUFF INHALER INH SCH ×2 (05:46→18:23)
[2020-08-19] MEDS: Albuterol 200 PUFF (6.7GM INHALER) INH SCH ×4 (05:52→20:00)
[2020-08-19] MEDS: Pantoprazole 40 MG VIAL IVP SCH (08:37)
[2020-08-19] MEDS: hydrALAZINE 25 MG TAB PO SCH ×3 (08:38→19:47)
[2020-08-19] MEDS: Ascorbic Acid 500 mg Chewable Tablet PO SCH (08:38)
[2020-08-19] MEDS: Potassium Chloride 20 MEQ TAB PO SCH ×2 (08:38→19:42)
[2020-08-19] MEDS: Cholecalciferol (Vitamin D3) 400 UNITS TAB PO SCH (08:38)
[2020-08-19] MEDS: Dexamethasone 4 MG TAB PO SCH (08:38)
[2020-08-19] MEDS: Zinc Sulfate 220 MG CAP PO SCH (08:39)
[2020-08-19] MEDS: Dabigatran 150 mg Capsule PO SCH ×2 (08:41→19:41)
[2020-08-19] MEDS: ACARBOSE PO SCH (09:00)
[2020-08-19] MEDS ORDERED: guaiFENesin/Codeine 200 mg/20 mg 10 ml Cup PO PRN (10:21)
[2020-08-19] MEDS: HumaLOG 300 UNITS/3 ML VIAL SC PRN ×2 (13:18→17:48)
--- NOTE | 2020-08-19 13:41 | PDOC.HOSPP ---
- Subjective Encounter Date: 08/19/20 Subjective: Stable, appears comfortable, sitting in a chair - Objective Vital Signs & Weight: Vital Signs (12 hours) Temp Pulse Resp BP Pulse Ox 08/19/20 08:30 93 L 08/19/20 07:39 98.2 F 75 20 153/80 H 93 L Weight Weight 213 lb I&O: 08/18/20 08/19/20 08/20/20 06:59 06:59 06:59 Intake Total 1950 1495 Output Total 950 700 Balance 1000 795 Result Diagrams: 08/17/20 05:51 08/17/20 05:51 Hospitalist ROS - Review of Systems Constitutional: denies: fever, chills, sweats, weakness, malaise, other Eyes: denies: pain, vision change, conjunctivae inflammation, eyelid inflammation, redness, other ENT: denies: ear pain, ear discharge, nose pain, nose discharge, nose co ngestion, mouth pain, mouth swelling, throat pain, throat swelling, other Respiratory: reports: cough, shortness of breath Cardiovascular: denies: chest pain, palpitations, orthopnea, paroxysmal noc. dyspnea, edema, light headedness, other Musculoskeletal: denies: neck pain, shoulder pain, arm pain, back pain, hand pain, leg pain, foot pain, other Neurological: denies: weakness, numbness, incoordination, change in speech, confusion, seizures, other - Medication Medications: Active Medications Generic Name Dose Route Start Last Admin Trade Name Freq PRN Reason Stop Dose Admin Albuterol Sulfate 2 puff 08/12/20 15:00 08/19/20 10:50 Albuterol 200 Puff (6.7gm Inhaler) INH 2 puff [id number] [facility] Administration Albuterol Sulfate 2 puff 08/12/20 13:14 08/13/20 05:41 Albuterol 200 Puff (6.7gm Inhaler) INH 2 puff Q6H PRN Administration SOB &/or Wheezing Amlodipine Besylate 2.5 mg 08/17/20 21:00 08/18/20 20:03 Amlodipine 5 Mg Tab PO 2.5 mg HS [facility] Administration Ascorbic Acid 1,000 mg 08/13/20 09:00 08/19/20 08:38 Ascorbic Acid 500 Mg Chewable Tablet PO 1,000 mg DAILY [facility] Administration Atorvastatin Calcium 10 mg 08/12/20 21:00 08/18/20 20:02 Atorvastatin Calcium 10 Mg Tab PO 10 mg HS [facility] Administration Cholecalciferol 400 units 08/13/20 09:00 08/19/20 08:38 Cholecalciferol (Vitamin D3) 400 Units Tab PO 400 units DAILY [facility]ETH Administration Dabigatran 150 mg 08/12/20 21:00 08/19/20 08:41 Dabigatran 150 Mg Capsule PO 150 mg BID [facility] Administration Dexamethasone 6 mg 08/13/20 08:00 08/19/20 08:38 Dexamethasone 4 Mg Tab PO 6 mg QAM-WM [facility] Administration Dutasteride 0.5 mg 08/12/20 18:00 08/18/20 17:46 Dutasteride 0.5 Mg Cap PO 0.5 mg 1800 [facility] Administration Hydralazine HCl 50 mg 08/17/20 15:00 08/19/20 08:38 Hydralazine 25 Mg Tab PO 50 mg TID [facility] Administration Sodium Chloride 500 mls @ 50 mls/hr 08/15/20 12:22 08/19/20 12:41 Normal Saline 0.9% IV Not Given .Q10H [facility] Insulin Human Lispro 0 units 08/12/20 11:58 08/19/20 13:18 Humalog 300 Units/3 Ml Vial SC 3 unit .MILD SLIDING SCALE PRN Administration Mild Correctional Scale Levothyroxine Sodium 175 mcg 08/13/20 06:00 08/19/20 05:31 Levothyroxine 175 Mcg Tab PO 175 mcg 0600 [facility] Administration Loperamide HCl 2 mg 08/12/20 11:52 08/16/20 13:00 Loperamide Hcl 2 Mg Cap PO 2 mg PRN PRN Administration Diarrhea/Loose Stools Losartan Potassium 100 mg 08/13/20 21:00 08/18/20 20:02 Losartan 25 Mg Tab PO 100 mg HS [facility] Administration Metformin HCl 1,000 mg 08/13/20 09:00 08/16/20 08:28 Metformin Xr 500 Mg Tab PO 1,000 mg 0900,1700 [facility] Administration Metoprolol Succinate 100 mg 08/13/20 08:00 08/19/20 08:38 Metoprolol Succinate Xl 100 Mg Tab PO 100 mg BID-WM [facility] Administration Mometasone Furoate/Formoterol Fumar 2 puff 08/12/20 18:30 08/19/20 05:46 Mometasone 200 Mcg/Formoterol 5 Mcg 120 Puff Inhaler INH 2 puff BID-RT [facility] Administration Montelukast Sodium 10 mg 08/12/20 21:00 08/18/20 20:03 Montelukast Sodium 10 Mg Tablet PO 10 mg HS [facility] Administration Pantoprazole Sodium 40 mg 08/14/20 09:00 08/19/20 08:37 Pantoprazole 40 Mg Vial IVP 40 mg DAILY [facility] Administration Patient's Home 0 each 08/18/20 09:00 08/19/20 09:00 Medication Acarbose PO 1 each 0900 [facility] Administration Patient's Home 0 each 08/17/20 17:00 08/18/20 16:29 Medication Januvia PO 1 each 1700 [facility] Administration Potassium Chloride 20 meq 08/12/20 21:00 08/19/20 08:38 Potassium Chloride 20 Meq Tab PO 20 meq BID [facility] Administration Sodium Chloride 10 ml 08/12/20 11:52 08/18/20 08:14 Flush - Normal Saline 10 Ml Syringe IVF 10 ml PRN PRN Administration Saline Flush Tamsulosin HCl 0.4 mg 08/12/20 18:00 08/18/20 17:46 Tamsulosin Hcl 0.4 Mg Cap PO 0.4 mg 1800 [facility] Administration Zinc Sulfate 220 mg 08/13/20 09:00 08/19/20 08:39 Zinc Sulfate 220 Mg Cap PO 220 mg DAILY [facility] Administration Hospitalist Exam Vitals: Vital Signs (12 hours) Temp Pulse Resp BP Pulse Ox 08/19/20 08:30 93 L 08/19/20 07:39 98.2 F 75 20 153/80 H 93 L Weight Weight 213 lb General Appearance: NAD Eye: PERRL ENT: normocephalic atraumatic Neck: supple Respiratory: tachypneic Gastrointestinal: soft, non-tender, non-distended Extremities: no cyanosis, no clubbing Hosp A/P - Plan #1. Acute hypoxic respiratory failure secondary to Covid pneumonia -Completed course of remdesivir and Decadron -On high flow oxygen with sats at 94% 2. History of atrial fibrillation -Continue Pradaxa 3. History of type 2 diabetes -Continue sliding scale insulin 4. History of essential hypertension -Continue amlodipine and losartan 5. DVT prophylaxis -On Pradaxa 6. Disposition: Patient markedly deconditioned. energy and sustainability manager consulted for placement to IPR
[2020-08-19] MEDS: JANUVIA PO SCH (17:00)
[2020-08-19] MEDS: Tamsulosin HCl 0.4 MG CAP PO SCH (17:00)
[2020-08-19] MEDS: Dutasteride 0.5 MG CAP PO SCH (17:00)
[2020-08-19] MEDS: Montelukast Sodium 10 mg Tablet PO SCH (19:41)
[2020-08-19] MEDS: Atorvastatin Calcium 10 MG TAB PO SCH (19:42)
[2020-08-19] MEDS: Losartan 25 MG TAB PO SCH (19:47)
[2020-08-19] MEDS: Amlodipine 5 MG TAB PO SCH (19:48)
[2020-08-20] MEDS: Levothyroxine 175 MCG TAB PO SCH (05:05)
[2020-08-20] MEDS: Mometasone 200 MCG/Formoterol 5 MCG 120 PUFF INHALER INH SCH ×2 (06:20→17:34)
[2020-08-20] MEDS: Albuterol 200 PUFF (6.7GM INHALER) INH SCH ×4 (06:32→19:49)
[2020-08-20] MEDS: Dexamethasone 4 MG TAB PO SCH (08:11)
[2020-08-20] MEDS: Cholecalciferol (Vitamin D3) 400 UNITS TAB PO SCH (08:11)
[2020-08-20] MEDS: Dabigatran 150 mg Capsule PO SCH ×2 (08:11→19:51)
[2020-08-20] MEDS: Zinc Sulfate 220 MG CAP PO SCH (08:11)
[2020-08-20] MEDS: Ascorbic Acid 500 mg Chewable Tablet PO SCH (08:12)
[2020-08-20] MEDS: Potassium Chloride 20 MEQ TAB PO SCH ×2 (08:12→19:52)
[2020-08-20] MEDS: hydrALAZINE 25 MG TAB PO SCH ×3 (08:12→19:51)
[2020-08-20] MEDS: ACARBOSE PO SCH (08:12)
[2020-08-20] MEDS: Pantoprazole 40 MG VIAL IVP SCH (08:13)
[2020-08-20 08:44] LABS: #Eosinphils 0.3 thou/uL (0.0-0.7); #Lymphocytes 1.5 thou/uL (1.20-3.40); #Monocytes 0.8 thou/uL (0.11-0.59); #Neutrophils 11.1 thou/uL (1.40-6.50); %Basophils 0.1 % (0.0-1.0); %Eosinophils 2.4 % (0.0-10.0); %Lymphocytes 10.8 % (21.0-51.0); %Monocytes 5.7 % (0.0-10.0); Mean Corpuscular HGB CONC 31.9 g/dL (32.0-36.0); Mean Corpuscular Volume 90.8 fL (78.0-98.0); Mean Platelet Volume 8.2 fL (7.4-10.4); Platelet Count 187 thou/uL (130-400); Red Blood Cell (RBC) Count 4.14 mill/uL (4.70-6.10); White Blood Cell (WBC) Count 13.8 thou/uL (4.8-10.8)
[2020-08-20 09:02] LABS: Anion Gap 11 mmol/L (10-20); BUN (Urea Nitrogen) 19 mg/dL (8.4-25.7); Calc. Creatinine Clearance 86 mL/min (70-130); Calcium 8.1 mg/dL (7.8-10.44); Carbon Dioxide 25 mmol/L (23-31); Chloride 103 mmol/L (98-107); Glucose 270 mg/dL (80-115); Potassium 3.4 mmol/L (3.5-5.1); Sodium 136 mmol/L (136-145)
[2020-08-20] MEDS: Sodium Chloride 0.9% 500 ML IV SCH (10:53)
--- NOTE | 2020-08-20 11:36 | PDOC.HOSPP ---
- Subjective Encounter Date: 08/20/20 Encounter Time: 11:34 Subjective: No complaints, lying in bed comfortably - Objective Vital Signs & Weight: Vital Signs (12 hours) Temp Pulse Resp BP Pulse Ox 08/20/20 08:10 95 08/20/20 07:34 97.2 F L 64 20 141/93 H 95 Weight Weight 213 lb I&O: 08/19/20 08/20/20 08/21/20 06:59 06:59 06:59 Intake Total 1495 2730 Output Total 700 2600 Balance 795 130 Result Diagrams: 08/20/20 08:29 08/20/20 08:29 Additional Labs: Accuchecks 08/20/20 08/19/20 08/19/20 04:43 19:44 16:03 POC Glucose 179 H 364 H 269 H 08/19/20 08/18/20 11:43 16:10 POC Glucose 248 H 299 H Hospitalist ROS - Review of Systems Constitutional: denies: fever, chills, sweats, weakness, malaise, other Eyes: denies: pain, vision change, conjunctivae inflammation, eyelid inflammation, redness, other ENT: denies: ear pain, ear discharge, nose pain, nose discharge, nose congestion, mouth pain, mouth swelling, throat pain, throat swelling, other Respiratory: reports: shortness of breath, SOB with excertion Gastrointestinal: denies: nausea, vomiting, abdominal pain, diarrhea, constipation, melena, hematochezia, other Musculoskeletal: denies: neck pain, shoulder pain, arm pain, back pain, hand pain, leg pain, foot pain, other - Medication Medications: Active Medications Generic Name Dose Route Start Last Admin Trade Name Freq PRN Reason Stop Dose Admin Albuterol Sulfate 2 puff 08/12/20 15:00 08/20/20 10:52 Albuterol 200 Puff (6.7gm Inhaler) INH 2 puff [id number] [facility] Administration Albuterol Sulfate 2 puff 08/12/20 13:14 08/13/20 05:41 Albuterol 200 Puff (6.7gm Inhaler) INH 2 puff Q6H PRN Administration SOB &/or Wheezing Amlodipine Besylate 2.5 mg 08/17/20 21:00 08/19/20 19:48 Amlodipine 5 Mg Tab PO 2.5 mg HS [facility] Administration Ascorbic Acid 1,000 mg 08/13/20 09:00 08/20/20 08:12 Ascorbic Acid 500 Mg Chewable Tablet PO 1,000 mg DAILY [facility] Administration Atorvastatin Calcium 10 mg 08/12/20 21:00 08/19/20 19:42 Atorvastatin Calcium 10 Mg Tab PO 10 mg HS [facility] Administration Cholecalciferol 400 units 08/13/20 09:00 08/20/20 08:11 Cholecalciferol (Vitamin D3) 400 Units Tab PO 400 units DAILY [facility] Administration Dabigatran 150 mg 08/12/20 21:00 08/20/20 08:11 Dabigatran 150 Mg Capsule PO 150 mg BID [facility] Administration Dexamethasone 6 mg 08/13/20 08:00 08/20/20 08:11 Dexamethasone 4 Mg Tab PO 6 mg [facility]AM[facility] Administration Dutasteride 0.5 mg 08/12/20 18:00 08/19/20 17:00 Dutasteride 0.5 Mg Cap PO 0.5 mg 1800 [facility] Administration Hydralazine HCl 50 mg 08/17/20 15:00 08/20/20 08:12 Hydralazine 25 Mg Tab PO 50 mg TID [facility] Administration Insulin Human Lispro 0 units 08/12/20 11:58 08/19/20 17:48 Humalog 300 Units/3 Ml Vial SC 4 unit .MILD SLIDING SCALE PRN Administration Mild Correctional Scale Insulin Human Lispro 0 units 08/12/20 11:58 08/19/20 19:50 Humalog 300 Units/3 Ml Vial SC 5 unit .BEDTIME SLIDING SC PRN Administration Bedtime Correctional Scale Levothyroxine Sodium 175 mcg 08/13/20 06:00 08/20/20 05:05 Levothyroxine 175 Mcg Tab PO 175 mcg 0600 [facility] Administration Loperamide HCl 2 mg 08/12/20 11:52 08/16/20 13:00 Loperamide Hcl 2 Mg Cap PO 2 mg PRN PRN Administration Diarrhea/Loose Stools Losartan Potassium 100 mg 08/13/20 21:00 08/19/20 19:47 Losartan 25 Mg Tab PO 100 mg HS [facility] Administration Metoprolol Succinate 100 mg 08/13/20 08:00 08/20/20 08:11 Metoprolol Succinate Xl 100 Mg Tab PO 100 mg BID-WM [facility] Administration Mometasone Furoate/Formoterol Fumar 2 puff 08/12/20 18:30 08/20/20 06:20 Mometasone 200 Mcg/Formoterol 5 Mcg 120 Puff Inhaler INH 2 puff BID-RT [facility] Administration Montelukast Sodium 10 mg 08/12/20 21:00 08/19/20 19:41 Montelukast Sodium 10 Mg Tablet PO 10 mg HS [facility] Administration Pantoprazole Sodium 40 mg 08/14/20 09:00 08/20/20 08:13 Pantoprazole 40 Mg Vial IVP 40 mg DAILY [facility] Administration Patient's Home 0 each 08/18/20 09:00 08/20/20 08:12 Medication Acarbose PO 1 each 0900 [facility] Administration Patient's Home 0 each 08/17/20 17:00 08/19/20 17:00 Medication Januvia PO 1 each 1700 [facility] Administration Potassium Chloride 20 meq 08/12/20 21:00 08/20/20 08:12 Potassium Chloride 20 Meq Tab PO 20 meq BID [facility] Administration Sodium Chloride 10 ml 08/12/20 11:52 08/18/20 08:14 Flush - Normal Saline 10 Ml Syringe IVF 10 ml PRN PRN Administration Saline Flush Tamsulosin HCl 0.4 mg 08/12/20 18:00 08/19/20 17:00 Tamsulosin Hcl 0.4 Mg Cap PO 0.4 mg 1800 [facility] Administration Zinc Sulfate 220 mg 08/13/20 09:00 08/20/20 08:11 Zinc Sulfate 220 Mg Cap PO 220 mg DAILY [facility] Administration Hospitalist Exam Vitals: Vital Signs (12 hours) Temp Pulse Resp BP Pulse Ox 08/20/20 08:10 95 08/20/20 07:34 97.2 F L 64 20 141/93 H 95 Weight Weight 213 lb General Appearance: NAD, awake alert Eye: PERRL ENT: normocephalic atraumatic Heart: RRR, no murmur, no gallops Respiratory: normal chest expansion Gastrointestinal: soft, non-tender, non-distended Extremities: no cyanosis Hosp A/P - Plan #1. Acute hypoxic respiratory failure secondary to Covid pneumonia -Completed course of remdesivir and Decadron -On high flow oxygen with sats at 94% on 3 L 2. History of atrial fibrillation -Continue Pradaxa 3. History of type 2 diabetes -Continue sliding scale insulin 4. History of essential hypertension -Continue amlodipine and losartan 5. DVT prophylaxis -On Pradaxa 6. Disposition: Patient markedly deconditioned. quality control systems manager consulted for placement to IPR
--- NOTE | 2020-08-20 11:42 | PDOC.DS.DS ---
Provider Date of Admission: 08/12/20 10:11 Date of Discharge: 08/20/20 Admitting Provider: Real Scott MD Primary Care Physician: Leif Magana, DO Course Hospital Course: 64-year-old male with history of atrial fibrillation on Pradaxa, type 2 diabetes, admitted for acute hypoxic respiratory failure secondary to Covid pneumonia. Patient completed course of antibiotics, remdesivir and dexamethasone in-house and was markedly improved prior to discharge. At time of discharge sats was at 94% on 3 L. Discharged to inpatient rehab due to marked deconditioned status. Lab Results: 08/20/20 08:29 08/20/20 08:29 Abnormal Lab Results - Last 48 hrs 08/20/20 08:29: Potassium 3.4 L 08/20/20 08:29: WBC 13.8 H, RBC 4.14 L, Hgb 12.0 L, Hct 37.6 L, MCHC 31.9 L, RDW 16.0 H, Neutrophils % 81.0 H, Lymphocytes % 10.8 L, Neutrophils # 11.1 H, Monocytes # 0.8 H Microbiology - Entire Visit 08/12/20 08:24 Venous blood - Left Arm Blood Culture - Final NO GROWTH IN 5 DAYS 08/12/20 08:24 Venous blood - Right Arm Blood Culture - Final NO GROWTH IN 5 DAYS 08/13/20 11:41 Sputum Respiratory Culture - Final 08/12/20 10:30 Urine voided Urine Culture - Final NO GROWTH AT 48 HOURS Vitals: Vital Signs (12 hours) Temp Pulse Resp BP Pulse Ox 08/20/20 08:10 95 08/20/20 07:34 97.2 F L 64 20 141/93 H 95 Weight Weight 213 lb Physical Exam: The patient was seen and examined on the day of discharge. General Appearance: NAD, awake alert Eye: PERRL ENT: normocephalic atraumatic, no oropharyngeal lesions Neck: supple, no JVD Respiratory: no wheezes Cardiovascular: RRR, no murmur Gastrointestinal: soft, non-tender, non-distended, normal bowel sounds Extremities: no cyanosis, no clubbing, no edema Neurological: cranial nerve grossly intact Plan Home Medications: Medication Instructions Recorded Confirmed Type Levothyroxine Sodium 175 mcg PO DAILY 09/09/14 08/12/20 History Atorvastatin Calcium 10 mg PO DAILY 05/28/20 08/12/20 History Dabigatran [Pradaxa] 150 mg PO BID 05/28/20 08/12/20 History Furosemide 40 mg PO DAILY 05/28/20 08/12/20 History Metoprolol Succinate 100 mg PO ASDIR 05/28/20 08/12/20 History Potassium Chloride 20 meq PO BID 05/28/20 08/12/20 History Acarbose [Precose] 25 mg PO 1700 08/12/20 08/12/20 History Albuterol Sulfate [Albuterol 1.25 mg NEB Q6HR PRN 08/12/20 08/12/20 History Sulfate Neb] Amlodipine [Norvasc] 2.5 mg PO HS 08/12/20 08/12/20 History Dutasteride/Tamsulosin HCl 1 each PO ASDIR 08/12/20 08/12/20 History [Dutasteride-Tamsulosin 0.5-0.4] Furosemide 20 mg PO ASDIR 08/12/20 08/12/20 History Montelukast Sodium 10 mg PO HS 08/12/20 08/12/20 History Symbicort 160-4.5 2 puff INH BID 08/12/20 08/12/20 History Telmisartan 80 mg PO HS 08/12/20 08/12/20 History hydrALAZINE [Apresoline] 25 mg PO TID 08/12/20 08/12/20 History metFORMIN HCl [Metformin HCl ER] 1,000 mg PO 1700 08/12/20 08/12/20 History metFORMIN [Glucophage] 1,000 mg PO QAM-WM 08/12/20 08/12/20 History sitaGLIPtin Phosphate [Januvia] 25 mg PO QAM 08/13/20 08/13/20 History Allergies: No Known Allergies Allergy (Verified 06/09/20 12:09) Activity:: Activity as Tolerated Nourishment:: Heart Healthy Diet Referrals: Manish Magana DO [Primary Care Provider] - Disposition: REHABILITATION INPATIENT Quality CORE MEASURES:: N/A
[2020-08-20] MEDS: HumaLOG 300 UNITS/3 ML VIAL SC PRN ×2 (11:49→16:40)
[2020-08-20] MEDS: JANUVIA PO SCH (17:33)
[2020-08-20] MEDS: Tamsulosin HCl 0.4 MG CAP PO SCH (17:33)
[2020-08-20] MEDS: Dutasteride 0.5 MG CAP PO SCH (17:34)
[2020-08-20 18:28] VITALS: TEMP 98
[2020-08-20] MEDS: Amlodipine 5 MG TAB PO SCH (19:49)
[2020-08-20] MEDS: Atorvastatin Calcium 10 MG TAB PO SCH (19:51)
[2020-08-20] MEDS: Losartan 25 MG TAB PO SCH (19:51)
[2020-08-20] MEDS: Montelukast Sodium 10 mg Tablet PO SCH (19:52)
[2020-08-20 20:05] VITALS: BP 159/94
--- NOTE | 2020-08-23 06:50 | PQF ---
CLINICAL DOCUMENTATION CLARIFICATION FORM: Dear : Alena Calvin Date / Time: 08/23/20 06:50 Please exercise your independent, professional judgment in responding to the clarification form. Clinical indicators are provided on the bottom of this form for your review Please check appropriate box(es): [ ] Sepsis due to Covid 19 infection [ ] Severe Sepsis due to Covid 19 infection [ ] Localized infection without sepsis [ ] Other diagnosis, please specify [ ] Unable to determine In addition, please specify: Present on Admission (POA): [ ] Yes [ ] No [ ] Unable to determine Physician Signature: Date/Time: For continuity of documentation, please document condition throughout progress notes and discharge summary. Thank You. To be completed by CDI/Coding staff for physician review: Present Clinical Indicators - Signs / Symptoms / Labs Results and Location in Medical Record [x] Chest Xray: worsening multi lobar Covid PNA Chest Xray 08/12 [x] Acute hypoxic respiratory failure secondary to severe Covid19 PNA HP 08/12 [x] Temp=98.8 PW=316/78 Respi=28 Vital Signs 08/12 [x] Vckqu=094 Vital Signs 08/16 [x] Blood culture: no growth Laboratory 08/12 [x] Laboratory: 08/14=14.4 08/16=15.3 08/20=13.8 Laboratory 08/14 [x] Lactic: 08/12=2.5 Laboratory 08/12 Present Risk Factors Results and Location in Medical Record [x] DM ED Notes 08/12 [x] 64 years old male HP 08/12 [x] Covid 19 PNA HP 08/12 Present Treatments Results and Location in Medical Record [x] Oxygen via NC HP 08/12 [x] Azithromycin 500mg IV SEP 20 [x] Rocephin 1gm IV SEP 20 [x] IVF SEP 20 [x] Remdesivir 200mg IV SEP 20 CDS/Cash Specialist Signature: Giovanny Albarran Phone #: [phone] Date/Time: 08/23/20 This is a permanent part of the Medical Record [facility]
--- NOTE | 2020-09-01 12:52 | EKG ---
Test Reason : Blood Pressure : / mmHG Vent. Rate : 101 BPM Atrial Rate : 105 BPM P-R Int : 000 ms QRS Dur : 092 ms QT Int : 366 ms P-R-T Axes : 000 -17 090 degrees QTc Int : 474 ms Atrial fibrillation with rapid ventricular response Cannot rule out Inferior infarct , age undetermined Abnormal ECG Confirmed by ADALI Coker, TATIANA ([id number]), general expeditor BRENNON NUÑEZ ([id number]) on 09/01/2020 12:51:54 PM Referred By: Confirmed By:TATIANA BRO M.D.
== END 2020-08-20 20:13 | DRG 177 ==
LOC: ERS 07:56 → T4-A 10:11
PROVIDERS: ADMIT Internal Medicine; ATTEND Internal Medicine
PROC: XW13325 Transfusion of Convalescent Plasma (Nonautologous) into Peripheral Vein, Percutaneous Approach, New Technology Group 5 (ICD-10-PCS; 2020-08-13)
PROC: XW033E5 Introduction of Remdesivir Anti-infective into Peripheral Vein, Percutaneous Approach, New Technology Group 5 (ICD-10-PCS; principal; 2020-08-14)
DX: U07.1 COVID-19 (principal); J12.82 Pneumonia due to coronavirus disease 2019; J96.01 Acute respiratory failure with hypoxia; N17.9 Acute kidney failure, unspecified; I48.20 Chronic atrial fibrillation, unspecified; I10 Essential (primary) hypertension; E11.9 Type 2 diabetes mellitus without complications; G47.33 Obstructive sleep apnea (adult) (pediatric); E78.5 Hyperlipidemia, unspecified; J44.9 Chronic obstructive pulmonary disease, unspecified; D35.00 Benign neoplasm of unspecified adrenal gland; E03.9 Hypothyroidism, unspecified; Z87.442 Personal history of urinary calculi; Z79.899 Other long term (current) drug therapy; Z79.02 Long term (current) use of antithrombotics/antiplatelets; Z79.890 Hormone replacement therapy; Z79.84 Long term (current) use of oral hypoglycemic drugs; Z79.51 Long term (current) use of inhaled steroids
CPT/HCPCS: 36415; 36416; 36430; 71045; 71275; 80048; 80053; 81003; 81015; 82728; 83605; 84484; 85025; 85379; 85652; 86140; 86850; 86900; 86901; 87040; 87070; 87086; 87205; 87899; 89220; 93005; 96365; 96367; C9113; J0456; J0696; J3490; J7050; J8540; P9017; Q9967

== ENCOUNTER 2020-09-14 11:39 | Inpatient (IN) | payer MEDICARE ==
[~2020-09-14 11:39] MED LIST: Iopamidol-370 76% 500 ML 1 ML ONE
[2020-09-14 12:31] LABS: #Basophils 0.1 thou/uL (0.0-0.2); #Eosinphils 0.2 thou/uL (0.0-0.7); #Lymphocytes 1.3 thou/uL (1.20-3.40); #Monocytes 0.7 thou/uL (0.11-0.59); #Neutrophils 6.8 thou/uL (1.40-6.50); %Basophils 0.8 % (0.0-1.0); %Eosinophils 2.2 % (0.0-10.0); %Lymphocytes 13.8 % (21.0-51.0); %Monocytes 8.2 % (0.0-10.0); Hemoglobin 11.5 g/dL (14.0-18.0); Mean Corpuscular HGB CONC 31.5 g/dL (32.0-36.0); Mean Corpuscular Hemoglobin 28.6 pg (27.0-31.0); Mean Platelet Volume 7.2 fL (7.4-10.4); Platelet Count 321 thou/uL (130-400); RBC Distribution Width 16.2 % (11.5-14.5); Red Blood Cell (RBC) Count 4.01 mill/uL (4.70-6.10)
[2020-09-14 12:59] LABS: ALT (SGPT) 29 U/L (8-55); AST (SGOT) 19 U/L (5-34); Albumin 3.8 g/dL (3.4-4.8); Alkaline Phosphatase 88 U/L (40-110); Anion Gap 14 mmol/L (10-20); BUN (Urea Nitrogen) 12 mg/dL (8.4-25.7); Bilirubin, Total 2.8 mg/dL (0.2-1.2); Calc. Creatinine Clearance 0 mL/min (70-130); Calcium 8.7 mg/dL (7.8-10.44); Carbon Dioxide 24 mmol/L (23-31); Chloride 105 mmol/L (98-107); Globulin 4.1 g/dL (2.4-3.5); Glucose 207 mg/dL (80-115); Potassium 3.1 mmol/L (3.5-5.1); Protein, Total 7.9 g/dL (5.8-8.1); Sodium 140 mmol/L (136-145)
--- NOTE | 2020-09-14 13:18 | CT ---
CT ANGIOGRAM THORAX WITH IV CONTRAST AND 3-D RECONSTRUCTIONS CLINICAL INDICATION: Shortness of breath. History of Covid diagnosis and July 2020. COMPARISON: 08/12/2020 FINDINGS: Pulmonary arteries: No filling defects are seen in the pulmonary arteries to suggest a pulmonary embo deneen. Aorta: Normal in caliber without evidence of an aortic dissection. Vascular calcifications are seen i n the thoracic aorta. Lungs: Groundglass densities have improved compared to prior exam, but there are scattered increased interstitial densities which may be related to chronic fibrotic lung changes. Mild scattered patchy parenchymal densities are seen in each lower lobe and right upper lobe which could be related to area s of pneumonitis. Small bilateral pleural effusions are now seen. Mediastinum: The heart is again enlarged. Trace pericardial effusion is present. Coronary artery calc ifications are again seen. Mediastinal lymphadenopathy is again present. Largest mediastinal lymph node in a right paratracheal location measures 1.7 cm in short axis dimension. Finding may be attributable to reactive lymphadenopathy. Osseous structures: No suspicious lytic or sclerotic osseous lesion. Chest wall: No abnormality visualized. Upper abdomen: Adrenal nodules are again partially imaged. Rounded increased density focus is seen wi thin the region of the gastric antrum related to ingested material and possibly medication. IMPRESSION: 1. No CT evidence of a pulmonary embolus. 2. Small bilateral pleural effusions. 3. Findings likely due to mild scattered chronic interstitial lung changes greater in the upper lobes and on the right with associated minimal scattered patchy parenchymal densities in the lungs bilaterally which could be related to multifocal areas of pneumonia. Follow-up evaluation is recommen ded. 4. Cardiomegaly. 5. Mediastinal lymphadenopathy which may be reactive in origin. 6. Incomplete visualization of bilateral adrenal nodules also present on prior exam.
[2020-09-14] MEDS ORDERED: Furosemide 40 MG/4 ML VIAL ONE (14:15)
[2020-09-14] MEDS ORDERED: Acetaminophen 325 MG TAB PO PRN (16:02)
[2020-09-14] MEDS ORDERED: Ondansetron PF 4 MG/2 ML Vial IVP PRN (16:02)
[2020-09-14] MEDS ORDERED: Dextrose 5% in Water 1,000 ML IV PRN (16:05)
[2020-09-14] MEDS ORDERED: Dextrose 50% Abboject 50 ML SYRINGE SLOW IVP PRN (16:05)
[2020-09-14] MEDS ORDERED: HumaLOG 300 UNITS/3 ML VIAL SC PRN (16:05)
[2020-09-14] MEDS ORDERED: Magnesium Oxide 400 MG TAB PO SCH (16:15)
[2020-09-14] MEDS ORDERED: Potassium Chloride 20 MEQ TAB PO SCH ×2 (16:15→19:15)
[2020-09-14] MEDS ORDERED: Potassium Chloride 20 MEQ in Premix Bag 1 BAG IVPB SCH (16:15)
[2020-09-14 16:31] LABS: Troponin I 0.015 ng/mL (< 0.028)
[2020-09-14] MEDS ORDERED: Potassium Chloride 20 MEQ TAB ONE (17:10)
[2020-09-14] MEDS ORDERED: Potassium Chloride 40 MEQ in Sodium Chloride 0.9% 250 ML 250 ML IVPB SCH (18:15)
[2020-09-14 19:35] LABS: Troponin I 0.024 ng/mL (< 0.028)
[2020-09-14] MEDS ORDERED: Dabigatran 150 mg Capsule PO SCH (21:00)
[2020-09-14] MEDS ORDERED: Atorvastatin Calcium 10 MG TAB PO SCH (21:00)
[2020-09-15] MEDS: Furosemide 40 MG/4 ML VIAL SLOW IVP SCH ×2 (02:51→14:32)
[2020-09-15 04:42] LABS: #Basophils 0.1 thou/uL (0.0-0.2); #Eosinphils 0.4 thou/uL (0.0-0.7); #Lymphocytes 1.9 thou/uL (1.20-3.40); #Monocytes 1.1 thou/uL (0.11-0.59); #Neutrophils 6.1 thou/uL (1.40-6.50); %Basophils 0.8 % (0.0-1.0); %Eosinophils 3.7 % (0.0-10.0); %Lymphocytes 20.2 % (21.0-51.0); %Monocytes 11.1 % (0.0-10.0); %Neutrophils 64.2 % (42.0-75.0); Hemoglobin 10.2 g/dL (14.0-18.0); Mean Corpuscular HGB CONC 31.3 g/dL (32.0-36.0); Mean Corpuscular Hemoglobin 28.7 pg (27.0-31.0); Mean Corpuscular Volume 91.8 fL (78.0-98.0); Mean Platelet Volume 6.9 fL (7.4-10.4); Platelet Count 338 thou/uL (130-400); RBC Distribution Width 16.5 % (11.5-14.5); Red Blood Cell (RBC) Count 3.57 mill/uL (4.70-6.10); White Blood Cell (WBC) Count 9.5 thou/uL (4.8-10.8)
[2020-09-15 04:57] LABS: ALT (SGPT) 22 U/L (8-55); AST (SGOT) 14 U/L (5-34); Albumin 3.4 g/dL (3.4-4.8); Alkaline Phosphatase 77 U/L (40-110); Anion Gap 15 mmol/L (10-20); BUN (Urea Nitrogen) 12 mg/dL (8.4-25.7); Bilirubin, Direct 0.7 mg/dL (0.1-0.3); Bilirubin, Total 2.6 mg/dL (0.2-1.2); Calc. Creatinine Clearance 84 mL/min (70-130); Calcium 8.5 mg/dL (7.8-10.44); Carbon Dioxide 26 mmol/L (23-31); Chloride 106 mmol/L (98-107); Glucose 131 mg/dL (80-115); Magnesium 1.4 mg/dL (1.6-2.6); Potassium 3.5 mmol/L (3.5-5.1); Protein, Total 6.9 g/dL (5.8-8.1); Sodium 143 mmol/L (136-145)
[2020-09-15 06:20] VITALS: BMI 28.8
[2020-09-15] MEDS ORDERED: Magnesium Sulfate 4 GM in Sodium Chloride 0.9% 250 ML 250 ML IVPB SCH (06:45)
[2020-09-15] MEDS ORDERED: Potassium Chloride 20 MEQ TAB PO SCH (06:45)
--- NOTE | 2020-09-15 07:33 | PDOC.HOSPP ---
- Subjective Encounter Date: 09/15/20 Encounter Time: 07:32 Subjective: Hx of COVID. now with increasing sob x days. - Objective Vital Signs & Weight: Vital Signs (12 hours) Temp Pulse Resp BP Pulse Ox 09/15/20 03:44 97.8 F 78 22 H 172/92 H 95 09/14/20 19:35 97.9 F 86 22 H 156/96 H 99 Weight Weight 195 lb 6.4 oz Result Diagrams: 09/15/20 04:28 09/15/20 04:28 Hospitalist ROS - Medication Medications: Active Medications Generic Name Dose Route Start Last Admin Trade Name Freq PRN Reason Stop Dose Admin Atorvastatin Calcium 10 mg 09/14/20 21:00 09/14/20 22:33 Atorvastatin Calcium 10 Mg Tab PO 10 mg HS [facility] Administration Dabigatran 150 mg 09/14/20 21:00 09/14/20 22:33 Dabigatran 150 Mg Capsule PO 150 mg BID [facility] Administration Furosemide 40 mg 09/15/20 02:00 09/15/20 02:51 Furosemide 40 Mg/4 Ml Vial SLOW IVP 40 mg Q12H [facility] Administration Hospitalist Exam Vitals: Vital Signs (12 hours) Temp Pulse Resp BP Pulse Ox 09/15/20 03:44 97.8 F 78 22 H 172/92 H 95 09/14/20 19:35 97.9 F 86 22 H 156/96 H 99 Weight Weight 195 lb 6.4 oz General Appearance: awake alert Neck: no JVD Heart: no murmur, irregular Respiratory - other findings: mild bilat basilar rales Gastrointestinal: soft, non-distended, normal bowel sounds Extremities: 1+ LE edema Hosp A/P (1) Acute CHF Code(s): I50.9 - HEART FAILURE, UNSPECIFIED Status: Acute Qualifiers: Heart failure type: unspecified Qualified Code(s): I50.9 - Heart failure, unspecified (2) Acute respiratory failure with hypoxia Code(s): J96.01 - ACUTE RESPIRATORY FAILURE WITH HYPOXIA Status: Acute (3) Chronic atrial fibrillation Code(s): I48.20 - CHRONIC ATRIAL FIBRILLATION, UNSPECIFIED Status: Acute (4) Obstructive sleep apnea Code(s): G47.33 - OBSTRUCTIVE SLEEP APNEA (ADULT) (PEDIATRIC) Status: Acute (5) Pneumonia due to COVID-19 virus Code(s): U07.1 - COVID-19; J12.82 - PNEUMONIA DUE TO CORONAVIRUS DISEASE 2018 Status: Resolved (6) COPD (chronic obstructive pulmonary disease) Status: Chronic Qualifiers: Emphysema type: unspecified (7) DM type 2 (diabetes mellitus, type 2) Status: Chronic Qualifiers: Diabetes mellitus long line teamster insulin use: without long line teamster use Diabetes mellitus complication status: without complication Qualified Code(s): E11.9 - Type 2 diabetes mellitus without complications (8) Essential hypertension Code(s): I10 - ESSENTIAL (PRIMARY) HYPERTENSION Status: Chronic - Plan reinstitute home meds ECHO cardiagram O2 supplementatiom IV diuresis Consult cardiology
[2020-09-15] MEDS ORDERED: metFORMIN 500 MG TAB PO SCH (08:00)
[2020-09-15] MEDS ORDERED: Tamsulosin HCl 0.4 MG CAP PO SCH (09:00)
[2020-09-15] MEDS ORDERED: Losartan 25 MG TAB PO SCH (09:00)
[2020-09-15] MEDS ORDERED: SYMBICORT INH SCH (09:00)
[2020-09-15] MEDS ORDERED: Alogliptin 6.25 MG TAB PO SCH ×2 (09:00→17:00)
[2020-09-15] MEDS ORDERED: sitaGLIPtin Phosphate 25 MG TAB PO SCH (09:00)
[2020-09-15] MEDS ORDERED: Dutasteride 0.5 MG CAP PO SCH (09:00)
[2020-09-15] MEDS: hydrALAZINE 25 MG TAB PO SCH ×2 (09:19→19:57)
[2020-09-15] MEDS: Magnesium Oxide 400 MG TAB PO SCH (09:24)
[2020-09-15] MEDS: Dabigatran 150 mg Capsule PO SCH ×2 (09:27→19:57)
[2020-09-15] MEDS ORDERED: Spironolactone 25 MG TAB PO SCH (11:30)
[2020-09-15] MEDS ORDERED: Empagliflozin 10 MG TAB PO SCH (11:45)
--- NOTE | 2020-09-15 12:23 | CON ---
DATE OF CONSULTATION: 09/15/2020 REASON FOR CONSULTATION: Congestive heart failure. HISTORY OF PRESENT ILLNESS: Mr. Moody is a 64-year-old gentleman with history of atrial fibrillation, persistent; diabetes; hypertension; peripheral edema; hypomagnesemia; hypokalemia; admitted with severe congestive heart failure episode. Heidy did note that he has been having increasing amounts of swelling of his lower extremities. He was seen as an outpatient. He was on amlodipine, the dose was reduced, which helped, but he had progressive difficulty breathing. Finally, he came to the emergency room, found to be in congestive heart failure with pulmonary edema. No chest pain or pressure. Past history of longstanding atrial fibrillation. There was an attempt that restoring sinus rhythm. As an outpatient, cardioversion was done and took 360 joules of energy to convert to sinus rhythm, but he did not stay in sinus rhythm. When he came out of the fibrillation, he also had a junctional rhythm for a while that came into sinus. He thought he had been in atrial fibrillation for very prolonged time before very unlikely that he can maintain sinus rhythm. He has a history of hard to control hypertension. He was on spironolactone at one time, but had breast tenderness. It has been very difficult to control his blood pressure with medications. MEDICATIONS: As an outpatient, he was takin. Atorvastatin. 2. Metoprolol 100 mg, I will need to check the dose whether it is once or twice a day. 3. Metformin. 4. Telmisartan. 5. Amlodipine 2.5 mg a day. 6. Januvia. 7. Tamsulosin. 8. Acarbose. 9. Levothyroxine. PAST MEDICAL HISTORY: Other past history for diabetes, not on insulin. ALLERGIES: UNKNOWN. SOCIAL HISTORY: He does not have significant alcohol or tobacco intake. He does eat a relatively salty diet. He said the food that he eats is and it tends to be fairly salty, [id number] salted. FAMILY HISTORY: Negative for heart disease in a young age. REVIEW OF SYSTEMS: CONSTITUTIONAL: No significant weight gain or loss. VISION: No changes. HEARING: No changes. PULMONARY: No cough or wheezing. GASTROINTESTINAL: No nausea, vomiting, or diarrhea. SKIN: No rashes. NEUROLOGIC: No unilateral weakness or numbness. PSYCHIATRIC: No unusual depression or anxiety. PHYSICAL EXAMINATION: GENERAL: This is a pleasant 64-year-old man, resting comfortably. VITAL SIGNS: His blood pressure 159/84, previously 172/92; pulse in the 80s with atrial fibrillation. LUNGS: Clear. CARDIAC: Irregularly irregular. I do not hear murmur, rub, or gallop. NECK: Veins are normal. ABDOMEN: Obese, nontender. EXTREMITIES: Without clubbing or cyanosis. There is moderate edema. PERTINENT LABORATORY DATA: Potassium was 3.5, magnesium was low. Initial potassium was 3.1. Troponin levels were negative. BNP was elevated at 811. Chest x-ray showed pulmonary edema. Outpatient stress testing showed normal left ventricular function in terms of systole with normal perfusion. ASSESSMENT: 1. Congestive heart failure, diastolic, acute on chronic. 2. Hypertension, very difficult to control. 3. Improved blood pressure in the past with spironolactone, but developed breast tenderness. 4. Atrial fibrillation, which is now longstanding, persistent, very likely we can have the patient back in sinus rhythm long-term with any type of intervention. PLAN: 1. I wanted to change his diabetes medicine to SGLT2 inhibitor. If we can keep the salt and water off him, his heart failure will be dramatically better. 2. At least give him a low dose of spironolactone. 3. Continue telmisartan for now. If he has refractory heart failure, could consider trying to get Entresto, although currently it is only indicated for systolic heart failure. 4. Continue to replete potassium, magnesium. We will follow with you. Job ID: [id number]
[2020-09-15] MEDS: Mometasone 200 MCG/Formoterol 5 MCG 120 PUFF INHALER INH SCH (19:08)
[2020-09-15] MEDS: Dutasteride 0.5 MG CAP PO SCH (19:57)
[2020-09-15] MEDS: Atorvastatin Calcium 10 MG TAB PO SCH (19:57)
[2020-09-15] MEDS: Losartan 25 MG TAB PO SCH (19:57)
[2020-09-15] MEDS: Tamsulosin HCl 0.4 MG CAP PO SCH (19:58)
[2020-09-15] MEDS: Montelukast Sodium 10 mg Tablet PO SCH (19:58)
[2020-09-15] MEDS ORDERED: Non-Formulary Item 1 EACH (Telmisartan [Telmisartan] 80 MG Tablet) PO SCH (21:00)
[2020-09-15] MEDS ORDERED: Amlodipine 5 MG TAB PO SCH (21:00)
[2020-09-16] MEDS: Furosemide 40 MG/4 ML VIAL SLOW IVP SCH ×3 (01:24→16:55)
[2020-09-16 04:39] LABS: #Basophils 0.1 thou/uL (0.0-0.2); #Eosinphils 0.4 thou/uL (0.0-0.7); #Lymphocytes 2.1 thou/uL (1.20-3.40); #Neutrophils 5.5 thou/uL (1.40-6.50); %Basophils 0.9 % (0.0-1.0); %Eosinophils 4.6 % (0.0-10.0); %Lymphocytes 22.5 % (21.0-51.0); %Monocytes 11.4 % (0.0-10.0); %Neutrophils 60.6 % (42.0-75.0); Hemoglobin 10.4 g/dL (14.0-18.0); Mean Corpuscular HGB CONC 30.7 g/dL (32.0-36.0); Mean Corpuscular Hemoglobin 27.8 pg (27.0-31.0); Mean Corpuscular Volume 90.3 fL (78.0-98.0); Mean Platelet Volume 6.8 fL (7.4-10.4); Platelet Count 351 thou/uL (130-400); RBC Distribution Width 16.4 % (11.5-14.5); Red Blood Cell (RBC) Count 3.74 mill/uL (4.70-6.10); White Blood Cell (WBC) Count 9.1 thou/uL (4.8-10.8)
[2020-09-16 05:09] LABS: Anion Gap 11 mmol/L (10-20); BUN (Urea Nitrogen) 11 mg/dL (8.4-25.7); Calc. Creatinine Clearance 78 mL/min (70-130); Calcium 8.5 mg/dL (7.8-10.44); Carbon Dioxide 29 mmol/L (23-31); Chloride 103 mmol/L (98-107); Glucose 120 mg/dL (80-115); Sodium 140 mmol/L (136-145)
[2020-09-16 05:17] LABS: Potassium 2.9 mmol/L (3.5-5.1)
[2020-09-16] MEDS ORDERED: Potassium Chloride 20 MEQ TAB PO SCH ×2 (06:15→17:00)
[2020-09-16] MEDS: Mometasone 200 MCG/Formoterol 5 MCG 120 PUFF INHALER INH SCH ×2 (07:42→19:07)
--- NOTE | 2020-09-16 07:42 | PDOC.HOSPP ---
- Subjective Encounter Date: 09/16/20 Encounter Time: 07:29 Subjective: less sob, comfortable off O2 - Objective Vital Signs & Weight: Vital Signs (12 hours) Temp Pulse Resp BP Pulse Ox 09/16/20 03:12 98.8 F 69 16 137/90 98 09/15/20 19:51 98.5 F 86 16 150/84 H 97 Weight Weight 195 lb 11.2 oz I&O: 09/15/20 09/16/20 09/17/20 06:59 06:59 06:59 Intake Total 1440 Output Total 1750 Balance -310 Result Diagrams: 09/16/20 04:22 09/16/20 04:22 Additional Labs: Accuchecks 09/16/20 09/15/20 09/15/20 05:57 17:59 08:29 POC Glucose 127 H 120 H 130 H Hospitalist ROS - Medication Medications: Active Medications Generic Name Dose Route Start Last Admin Trade Name Freq PRN Reason Stop Dose Admin Atorvastatin Calcium 10 mg 09/15/20 21:00 09/15/20 19:57 Atorvastatin Calcium 10 Mg Tab PO 10 mg HS [facility] Administration Dabigatran 150 mg 09/15/20 09:00 09/15/20 19:57 Dabigatran 150 Mg Capsule PO 150 mg BID [facility] Administration Dutasteride 0.5 mg 09/15/20 21:00 09/15/20 19:57 Dutasteride 0.5 Mg Cap PO 0.5 mg HS [facility] Administration Furosemide 40 mg 09/15/20 02:00 09/16/20 01:24 Furosemide 40 Mg/4 Ml Vial SLOW IVP Not Given Q12H [facility] Hydralazine HCl 25 mg 09/15/20 09:00 09/15/20 19:57 Hydralazine 25 Mg Tab PO 25 mg BID [facility] Administration Losartan Potassium 100 mg 09/15/20 21:00 09/15/20 19:57 Losartan 25 Mg Tab PO 100 mg HS [facility] Administration Magnesium Oxide 400 mg 09/15/20 09:00 09/15/20 09:24 Magnesium Oxide 400 Mg Tab PO Not Given DAILY [facility] Metformin HCl 1,000 mg 09/15/20 08:00 09/15/20 09:18 Metformin 500 Mg Tab PO 1,000 mg QAM-WM [facility] Administration Metoprolol Succinate 100 mg 09/15/20 21:00 09/15/20 19:58 Metoprolol Succinate Xl 100 Mg Tab PO 100 mg BID [facility] Administration Mometasone Furoate/Formoterol Fumar 2 puff 09/15/20 18:30 09/15/20 19:08 Mometasone 200 Mcg/Formoterol 5 Mcg 120 Puff Inhaler INH Not Given BID-RT [facility] Montelukast Sodium 10 mg 09/15/20 21:00 09/15/20 19:58 Montelukast Sodium 10 Mg Tablet PO 10 mg HS [facility] Administration Potassium Chloride 40 meq 09/16/20 06:15 09/16/20 06:36 Potassium Chloride 20 Meq Tab PO 09/16/20 08:00 40 meq NOW [facility] Administration Sodium Chloride 10 ml 09/15/20 09:00 09/15/20 19:58 Flush - Normal Saline 10 Ml Syringe IVF Not Given Q12HR [facility] Tamsulosin HCl 0.4 mg 09/15/20 21:00 09/15/20 19:58 Tamsulosin Hcl 0.4 Mg Cap PO 0.4 mg HS [facility] Administration Hospitalist Exam Vitals: Vital Signs (12 hours) Temp Pulse Resp BP Pulse Ox 09/16/20 03:12 98.8 F 69 16 137/90 98 09/15/20 19:51 98.5 F 86 16 150/84 H 97 Weight Weight 195 lb 11.2 oz General Appearance: awake alert Neck: no JVD Heart: no murmur, irregular Respiratory: CTAB Gastrointestinal: soft, normal bowel sounds Extremities: 1+ LE edema Hosp A/P (1) Acute CHF Code(s): I50.9 - HEART FAILURE, UNSPECIFIED Status: Acute Qualifiers: Heart failure type: diastolic Qualified Code(s): I50.31 - Acute diastolic (congestive) heart failure (2) Acute respiratory failure with hypoxia Code(s): J96.01 - ACUTE RESPIRATORY FAILURE WITH HYPOXIA Status: Acute (3) Chronic atrial fibrillation Code(s): I48.20 - CHRONIC ATRIAL FIBRILLATION, UNSPECIFIED Status: Chronic (4) Obstructive sleep apnea Code(s): G47.33 - OBSTRUCTIVE SLEEP APNEA (ADULT) (PEDIATRIC) Status: Chronic (5) COPD (chronic obstructive pulmonary disease) Status: Chronic Qualifiers: Emphysema type: unspecified (6) DM type 2 (diabetes mellitus, type 2) Status: Chronic Qualifiers: Diabetes mellitus prison insulin use: without continuous churn buttermaker use Diabetes mellitus complication status: without complication Qualified Code(s): E11.9 - Type 2 diabetes mellitus without complications (7) Essential hypertension Code(s): I10 - ESSENTIAL (PRIMARY) HYPERTENSION Status: Chronic (8) Hypokalemia Code(s): E87.6 - HYPOKALEMIA Status: Acute - Plan cont iv diuresis,B-Lewis, ARB, anticoag cont accu/ss/ metformin, jardance cont spironolactone add daily K replacement discuss with cardiology
--- NOTE | 2020-09-16 09:05 | PRG ---
DATE OF SERVICE: 09/16/2020 SUBJECTIVE: Mr. Moody feeling much better. He has no complaints. OBJECTIVE: VITAL SIGNS: Blood pressure earlier 137/90, now 165/90; pulse 80, it is irregular, it is atrial fibrillation. LUNGS: Clear. CARDIAC: Irregularly irregular. ABDOMEN: Soft and nontender. EXTREMITIES: There is currently no edema. LABORATORY DATA: Potassium level remains low at 2.9. He had a good diuresis yesterday. The echocardiogram showed normal left ventricular function. ASSESSMENT: 1. Diastolic congestive heart failure, difficult to control. 2. Diabetes. 3. Improved status on an SGLT2 inhibitor, FAITH inhibitor, beta-manjeet. PLAN: 1. Continue diuresis today. 2. Should be ready to go home tomorrow. 3. He has been taken off amlodipine due to the edema. 4. Prior transition him off the Pradaxa to Eliquis as an outpatient later. Job ID: [id number]
[2020-09-16] MEDS: Potassium Chloride 20 MEQ TAB PO SCH (09:27)
[2020-09-16] MEDS: Spironolactone 25 MG TAB PO SCH (09:27)
[2020-09-16] MEDS: metFORMIN 500 MG TAB PO SCH ×2 (09:27→16:55)
[2020-09-16] MEDS: hydrALAZINE 25 MG TAB PO SCH ×2 (09:28→20:58)
[2020-09-16] MEDS: Magnesium Oxide 400 MG TAB PO SCH (09:28)
[2020-09-16] MEDS: Empagliflozin 10 MG TAB PO SCH (09:28)
[2020-09-16] MEDS: Dabigatran 150 mg Capsule PO SCH ×2 (09:28→20:59)
[2020-09-16] MEDS ORDERED: Furosemide 40 MG/4 ML VIAL ONE (11:19)
[2020-09-16] MEDS: Losartan 25 MG TAB PO SCH (20:57)
[2020-09-16] MEDS: Dutasteride 0.5 MG CAP PO SCH (20:57)
[2020-09-16] MEDS: Tamsulosin HCl 0.4 MG CAP PO SCH (20:58)
[2020-09-16] MEDS: Atorvastatin Calcium 10 MG TAB PO SCH (20:59)
[2020-09-16] MEDS: Montelukast Sodium 10 mg Tablet PO SCH (21:00)
[2020-09-17 05:07] LABS: #Basophils 0.1 thou/uL (0.0-0.2); #Eosinphils 0.4 thou/uL (0.0-0.7); #Lymphocytes 2.5 thou/uL (1.20-3.40); #Neutrophils 6.4 thou/uL (1.40-6.50); %Basophils 0.7 % (0.0-1.0); %Eosinophils 3.8 % (0.0-10.0); %Lymphocytes 24.1 % (21.0-51.0); %Neutrophils 61.4 % (42.0-75.0); Hemoglobin 10.8 g/dL (14.0-18.0); Mean Corpuscular HGB CONC 31.6 g/dL (32.0-36.0); Mean Corpuscular Hemoglobin 28.4 pg (27.0-31.0); Platelet Count 367 thou/uL (130-400); RBC Distribution Width 16.3 % (11.5-14.5); Red Blood Cell (RBC) Count 3.82 mill/uL (4.70-6.10); White Blood Cell (WBC) Count 10.4 thou/uL (4.8-10.8)
[2020-09-17 05:45] LABS: Anion Gap 14 mmol/L (10-20); BUN (Urea Nitrogen) 12 mg/dL (8.4-25.7); Calc. Creatinine Clearance 74 mL/min (70-130); Carbon Dioxide 23 mmol/L (23-31); Chloride 103 mmol/L (98-107); Glucose 112 mg/dL (80-115); Potassium 3.9 mmol/L (3.5-5.1); Sodium 136 mmol/L (136-145)
[2020-09-17] MEDS ORDERED: Furosemide 40 MG TAB PO SCH (06:00)
[2020-09-17] MEDS ORDERED: Levothyroxine 175 MCG TAB PO SCH (06:00)
[2020-09-17] MEDS: Mometasone 200 MCG/Formoterol 5 MCG 120 PUFF INHALER INH SCH (07:47)
[2020-09-17 08:00] VITALS: BP 147/81; TEMP 97.6
[2020-09-17] MEDS: Magnesium Oxide 400 MG TAB PO SCH (08:03)
[2020-09-17] MEDS: Potassium Chloride 20 MEQ TAB PO SCH (08:03)
[2020-09-17] MEDS: metFORMIN 500 MG TAB PO SCH (08:03)
[2020-09-17] MEDS: Spironolactone 25 MG TAB PO SCH (08:04)
[2020-09-17] MEDS: hydrALAZINE 25 MG TAB PO SCH (08:04)
[2020-09-17] MEDS: Dabigatran 150 mg Capsule PO SCH (08:26)
[2020-09-17] MEDS: Empagliflozin 10 MG TAB PO SCH (08:26)
--- NOTE | 2020-09-17 10:11 | PRG ---
DATE OF SERVICE: 09/17/2020 SUBJECTIVE: Mr. Moody is doing well. He is not short of breath. No chest pain or pressure. OBJECTIVE: VITAL SIGNS: Blood pressure 147/81, pulse 90 and it is irregular. LUNGS: Clear. CARDIAC: Irregularly irregular. ABDOMEN: Soft, nontender. EXTREMITIES: He has absolutely no edema. PERTINENT LABORATORY DATA: Potassium is 3.9, creatinine is 1.25. The patient is still making good urine output. The weight do not appear to be accurate. The I and O do not appear to be accurate. ASSESSMENT: 1. Congestive heart failure, diastolic, acute on chronic, compensated. 2. Hypokalemia, resolved. Potassium is now 3.9. 3. Renal insufficiency, mild, with a GFR of 58. 4. Diabetes. 5. Hypertension, difficult to control in the past. 6. Chronic atrial fibrillation (longstanding persistent). PLAN: 1. To go home on Pradaxa 150 mg twice a day, may change him to Eliquis later. 2. Jardiance 10 mg a day, which is a new medicine. He was given 10 mg samples for 2 weeks, and we will have him to see us in the office. 3. Furosemide reduced to 40 mg daily. 4. Telmisartan. Resume home dose. 5. Hydralazine 25 mg twice a day. 6. Magnesium oxide 400 mg a day. 7. Metoprolol succinate 100 mg twice a day. 8. Spironolactone 25 mg tablet, half pill a day. 9. He was taken off his other diabetes medicines other than metformin 1000 mg twice a day. His blood sugar has been well controlled. He was taken off the acarbose and Januvia. 10. Jardiance seems to tremendously help his heart failure. This can be obtained and the other option is Farxiga. The Farxiga is currently indicated for heart failure. The SGLT2 inhibitors have been recently shown to be extremely valuable and helpful in patients with congestive heart failure, especially in terms of preventing rehospitalization. Job ID: [id number]
--- NOTE | 2020-09-17 12:41 | PDOC.DS.DS ---
Provider Date of Admission: 09/14/20 15:18 Date of Discharge: 09/17/20 Admitting Provider: Luca Damon MD Consultations: Cardiology Primary Care Physician: Leif Magana, DO Course Hospital Course: 64-year-old male who was sent by his PCP for increasing shortness of breath, patient has increasing shortness of breath for last several weeks and acutely gotten worse on the day of admission, patient seen by his PCP and x-ray chest was performed and subsequently there was concerns for pneumonia versus CHF so patient was sent to emergency room for evaluation. Patient has history of atr ial fibrillation and he is on Pradaxa, in the emergency room he was given Lasix and he was admitted for CHF exacerbation. After admission cardiology evaluated this patient, On admission in the emergency room patient had CT angiography which was negative for pulmonary embolism, patient was found with small bilateral pleural effusion, chronic interstitial changes cardiomegaly and mediastinal lymphadenopathy, during this admission echocardiography showed EF 55 to 60%, moderate mitral regurgitation and moderate pulmonary regurgitation. While in hospital patient was treated with IV Lasix, he was initially requiring oxygen but by the time of discharge his oxygen saturations significantly improv ed. During this admission cardiology recommended medication adjustment, we have discontinued acarbose and the Januvia instead we started Jardiance 10 mg daily for his diabetes, we increased Metformin 1000 mg twice daily, on discharge we continued oral Lasix, Patient is instructed to continue Pradaxa but ultimately plan is to change to Eliquis as an outpatient basis, he will continue all his previous medication we added Aldactone and we increased Toprol-XL to twice daily. All new medication prescription sent to his pharmacy. Cardiology cleared him for discharge, Dietary education heart failure education and medication compliance as well as fluid restriction discussed with the patient, patient is seen and examined bedside today, he is medically stable for discharge today Resuscitation Status: 09/14/20 16:02 Resuscitation Status Routine Resuscitation Status: FULL: Full Resuscitation Discussed with: Patient Lab Results: 09/17/20 04:38 09/17/20 04:38 Abnormal Lab Results - Last 48 hrs 09/16/20 04:22: Potassium 2.9 L* 09/16/20 04:22: RBC 3.74 L, Hgb 10.4 L, Hct 33.8 L, MCHC 30.7 L, RDW 16.4 H, MPV 6.8 L, Monocytes % 11.4 H, Monocytes # 1.0 H 09/17/20 04:38: RBC 3.82 L, Hgb 10.8 L, Hct 34.3 L, MCHC 31.6 L, RDW 16.3 H, MPV 7.0 L, Monocytes # 1.0 H Vitals: Vital Signs (12 hours) Temp Pulse Resp BP Pulse Ox 09/17/20 07:58 97.6 F 90 19 147/81 H 95 09/17/20 05:00 83 20 166/98 H 09/17/20 04:45 95 09/17/20 04:00 98.5 F 104 H 18 94 L Weight Weight 197 lb 5 oz Physical Exam: The patient was seen and examined on the day of discharge. General Appearance: NAD, awake alert Eye: PERRL, anicteric sclera ENT: normocephalic atraumatic, no oropharyngeal lesions Neck: symmetric, no JVD, no thyromegaly Respiratory: no wheezes, no rales, no ronchi Cardiovascular: irregular, murmur present Gastrointestinal: soft, non-tender, non-distended Extremities: no cyanosis, no clubbing, no edema Skin: normal turgor, no lesions Neurological: no focal deficits Musculoskeletal: normal tone, normal strength, no muscle wasting PSYCH: normal affect, normal behavior, A&O x 3 Problem (1) Acute CHF Code(s): I50.9 - HEART FAILURE, UNSPECIFIED Status: Acute Qualifiers: Heart failure type: diastolic Qualified Code(s): I50.31 - Acute diastolic (congestive) heart failure (2) Acute respiratory failure with hypoxia Code(s): J96.01 - ACUTE RESPIRATORY FAILURE WITH HYPOXIA Status: Resolved (3) COPD (chronic obstructive pulmonary disease) Status: Chronic Qualifiers: Emphysema type: unspecified (4) Chronic atrial fibrillation Code(s): I48.20 - CHRONIC ATRIAL FIBRILLATION, UNSPECIFIED Status: Chronic (5) DM type 2 (diabetes mellitus, type 2) Status: Chronic Qualifiers: Diabetes mellitus terminal make up operator insulin use: without shelter use Diabetes mellitus complication status: without complication Qualified Code(s): E11.9 - Type 2 diabetes mellitus without complications (6) Essential hypertension Code(s): I10 - ESSENTIAL (PRIMARY) HYPERTENSION Status: Chronic (7) Obstructive sleep apnea Code(s): G47.33 - OBSTRUCTIVE SLEEP APNEA (ADULT) (PEDIATRIC) Status: Chronic Plan Prescriptions: Spironolactone [Aldactone] 12.5 mg PO DAILY #30 tab Empagliflozin [Jardiance] 10 mg PO DAILY #30 tab Furosemide [Lasix] 40 mg PO DAILY-AC #30 tab Magnesium Oxide 400 mg PO DAILY #30 tab metFORMIN HCl [Metformin HCl] 1,000 mg PO BID #60 tablet Metoprolol Succinate [Toprol XL] 100 mg PO BID #60 tab Home Medications: Medication Instructions Recorded Confirmed Type Atorvastatin Calcium 10 mg PO HS 05/28/20 09/14/20 History Dabigatran [Pradaxa] 150 mg PO BID 05/28/20 09/14/20 History Montelukast Sodium 10 mg PO HS 08/12/20 09/14/20 History Symbicort 160-4.5 2 puff INH BID 08/12/20 09/14/20 History Telmisartan 80 mg PO HS 08/12/20 09/14/20 History hydrALAZINE [Apresoline] 25 mg PO BID 08/12/20 09/14/20 History Dutasteride 0.5 mg PO DAILY 09/14/20 09/14/20 History Levothyroxine Sodium 175 mcg PO 0600 09/15/20 09/15/20 History [Levothyroxine] Empagliflozin [Jardiance] 10 mg PO DAILY #30 tab 09/17/20 Rx Furosemide [Lasix] 40 mg PO DAILY-AC #30 tab 09/17/20 Rx Magnesium Oxide 400 mg PO DAILY #30 tab 09/17/20 Rx Metoprolol Succinate [Toprol XL] 100 mg PO BID #60 tab 09/17/20 Rx Spironolactone [Aldactone] 12.5 mg PO DAILY #30 tab 09/17/20 Rx Tamsulosin HCl 0.4 mg PO DAILY #0 09/17/20 09/14/20 Rx metFORMIN HCl [Metformin HCl] 1,000 mg PO BID #60 tablet 09/17/20 Rx Allergies: No Known Allergies Allergy (Verified 06/09/20 12:09) Activity:: Activity as Tolerated Nourishment:: Diabetic Diet Therapies:: Not Applicable Equipment/Supplies:: Not Applicable IV Therapy:: Not Applicable Referrals: Manish Magana DO [Primary Care Provider] - 7 Days (Call and schedule a follow up appointment with your primary care provider within 7 days) Batool Summers MD [Active] - 09/23/20 (Follow up in the office with Giovanna Hickey NP on . Please have your blood drawn on 09/22/20. ) Disposition: HOME Quality CORE MEASURES:: N/A
[2020-09-18] MEDS ORDERED: Furosemide 40 MG TAB PO SCH (07:30)
== END 2020-09-17 13:40 | disposition home or self-care (01) | DRG 291 ==
LOC: ERS 11:39 → ERHOLD 15:18 → 2NO 19:19
PROVIDERS: ADMIT Internal Medicine; ATTEND Internal Medicine
DX: I11.0 Hypertensive heart disease with heart failure (principal); I50.31 Acute diastolic (congestive) heart failure; J96.01 Acute respiratory failure with hypoxia; I48.20 Chronic atrial fibrillation, unspecified; E11.9 Type 2 diabetes mellitus without complications; G47.33 Obstructive sleep apnea (adult) (pediatric); J44.9 Chronic obstructive pulmonary disease, unspecified; E87.6 Hypokalemia; I08.1 Rheumatic disorders of both mitral and tricuspid valves; R59.1 Generalized enlarged lymph nodes
CPT/HCPCS: 36415; 36416; 71275; 80048; 80053; 80061; 80076; 83036; 83735; 83880; 84439; 84443; 84484; 85025; 93005; 93306; 96374; 96375; J1940; J3475; J7050; Q9967